=== PATIENT | female | born 1970 | race Caucasian/White ===

== ENCOUNTER 2022-08-03 14:15 | Outpatient (CLI) | payer BC, SELFPAY | END 2022-08-03 14:16 | disposition home or self-care (01) | LOC: NFLDREF 14:15 | PROVIDERS: PCP Internal Medicine; Visit Provider Internal Medicine | DX: E66.9 Obesity, unspecified (principal); E03.9 Hypothyroidism, unspecified; E10.9 Type 1 diabetes mellitus without complications | CPT/HCPCS: 84443 ==

== ENCOUNTER 2022-08-14 08:02 | Outpatient (CLI) | payer BC, SELFPAY ==
--- NOTE | 2022-08-14 08:15 | CRLHL7_ITS ---
For Patients: As a result of the Century Cures Act, medical imaging exams and procedure reports are released immediately into your electronic medical record. You may view this report before your referring provider. If you have questions, please contact your health care provider. INDICATION: Thickened endometrium COMPARISON: 04/04/2018 TECHNIQUE: 2D lorenzo scale and color Doppler images were acquired of the pelvis using a transabdominal approach. Unable to perform transvaginal imaging. FINDINGS: The uterus measures 8.3 x 3.5 x 5.0 cm. No uterine fibroid. Mild heterogeneity of the uterine echotexture. The right ovary is absent. The left ovary is not visualized. No pelvic free fluid. The endometrium is somewhat indistinct and measures 1 cm in thickness. No endometrial fluid. Previously, the endometrium measured 8 millimeters. IMPRESSION: Mildly heterogeneous and somewhat indistinct endometrium measuring 1 cm. No endometrial fluid or uterine fibroid. Dictated by Sincere Hopkins MD @ 08/14/2022 8:45:48 AM (Electronically Signed)
== END 2022-08-14 08:03 | disposition home or self-care (01) ==
PROVIDERS: PCP Internal Medicine; Visit Provider Internal Medicine
DX: R93.89 Abnormal findings on diagnostic imaging of other specified body structures (principal)
CPT/HCPCS: 76830; 76856

== ENCOUNTER 2023-03-23 06:47 | Day surgery (SDC) | payer BC, SELFPAY ==
[2023-03-23 06:59] VITALS: BMI 36.1
[2023-03-23 07:31] VITALS: BP 131/91; PULSE 84; RESP 16; TEMP 36.1; O2SAT 97
[2023-03-23] MEDS: SODIUM CHLORIDE 0.9 % (FLUSH) 10 ML SYRINGE IVF (07:40)
[2023-03-23] MEDS: LACTATED RINGERS 1000 ML 1,000 ML 100 ML IV (07:40)
--- NOTE | 2023-03-23 09:57 | PM.PROC ---
Procedure Note Time Seen by Provider: 09:58 Date Seen: 03/23/23 Date of procedure: 03/23/23 Will [facility] bill your pro fee for this procedure?: Yes Procedure: Preoperative diagnosis: [age] year-old nulligravid woman with postmenopausal bleeding and thickened endometrium, 8 mm, on ultrasound Postoperative diagnosis: Same Procedure: 1. Pap with HPV Co -testing collected. 2. Hysteroscopy, Dilation and Curettage with ultrasound guidance using the Truclear incisor. Anesthesia: Conscious sedation, paracervical block. Surgeon: Alma Garcia MD Powder Room Attendant: None triage technician: Amy Arriaga Estimated blood loss: 5 mL Specimen: Endometrial curettings to pathology. Findings: Exam under anesthesia: very stenotic vaginal canal consistent with nulliparous state and menopausal. Uterus: anteverted position, less than Ten week sized, mobile, with no masses or nodularity palpable. Uterus sounded to 9 cm. No adnexal masses or nodularity palpable. On hysteroscopy: There were at least 3 polypoid masses within the endometrium otherwise the endometrial canal appeared normal after dilation and curettage. Procedure: Shavonne Lezama was taken to the operating operating room more conscious sedation was found to be adequate. The patient was placed on in the dorsal lithotomy position and an exam under anesthesia was performed with findings stated above. A Pap smear was collected. A Shara speculum was used. She was then prepped and draped in a normal sterile manner. A Hines catheter was placed and the bladder was backfilled with 250 mL of saline. The Hines catheter was then clamped to maintain fluid within the bladder. A bivalve speculum was placed in the vagina. The cervix appears nulliparous. Otherwise no abnormalities. The paracervical block was placed using 0.5% Marcaine, 5 mL was injected at the 4 and 8 o'clock positions on the cervix. The posterior lip of the cervix was grasped with a single-toothed tenaculum. The cervix dilated to Hegar 6. The uterus sounded to 9 cm. The Truclear hysteroscope was advanced into the uterus. A diagnostic hysteroscopy was performed with normal saline as the insufflation medium. Findings are stated above. The Truclear incisor was then advanced through the camera. The curettage was performed with the incisor over an approximately 3 minutes. The incisor was then removed. The endometrial cavity appeared normal. Saline deficit at the end of the procedure 315 mL. Total saline used 1110 mL. Silver nitrate was used for hemostasis on the cervix. The hysteroscope, single-toothed tenaculum and speculum were removed from the vaginal canal. The patient tolerated the procedure well. Sponge, lap and instrument counts were correct x2 at the end of the procedure. The patient was taken to the recovery area in stable condition. Anesthesia: MAC and local Estimated blood loss (mL): 5 IV fluids (mL): 900 Urine output (mL): 50 Pathology: specimen obtained, sent to pathology Condition: stable Disposition: same day
[2023-03-23 10:04] VITALS: BP 105/50; PULSE 68; RESP 16; TEMP 36.2; O2SAT 97
--- NOTE | 2023-03-23 10:06 | W.PM.H&PU ---
History & Physical Update History & Physical Update H&P Reviewed and patient assessed: No changes noted
--- NOTE | 2023-03-23 10:10 | W.ANESCHARGE ---
Anesthesia Charges Start Date/Time Anesthesia Start Date: 03/23/23 Anesthesia Start Time: 09:15 Stop Date/Time Anesthesia Stop Date: 03/23/23 Anesthesia Stop Time: 10:04
[2023-03-23 10:15] VITALS: BP 115/69; PULSE 54; RESP 16; O2SAT 95
[2023-03-23] MEDS: ONDANSETRON 2 MG/ML inj 4 MG IVP (10:15)
[2023-03-23 10:30] VITALS: BP 122/78; PULSE 51; RESP 16; O2SAT 95
[2023-03-23 10:45] VITALS: BP 107/80; PULSE 52; RESP 16; O2SAT 98
[2023-03-23 11:00] VITALS: BP 110/70; PULSE 51; RESP 16; O2SAT 99
--- NOTE | 2023-03-23 11:25 | W.ANESCHARGE ---
Anesthesia Charges Start Date/Time Anesthesia Start Date: 03/23/23 Anesthesia Start Time: 09:15 Stop Date/Time Anesthesia Stop Date: 03/23/23 Anesthesia Stop Time: 10:04
--- NOTE | 2023-03-24 07:32 | SUR.OPER ---
sent for PAP and HPV to lab 03/23/2023
== END 2023-03-23 11:15 | disposition home or self-care (01) ==
PROVIDERS: PCP Internal Medicine; Visit Provider Obstetrics & Gynecology
PROC: 0UDB8ZZ Extraction of Endometrium, Via Natural or Artificial Opening Endoscopic (ICD-10-PCS; CPT 58558; principal; 2023-03-23 08:00)
DX: N95.0 Postmenopausal bleeding (principal); R93.89 Abnormal findings on diagnostic imaging of other specified body structures; N84.0 Polyp of corpus uteri
CPT/HCPCS: 58558; 00952; 76856; 76857; 76998; 82962; 88305; J1100; J1885; J2250; J2405; J2704; J3010; J7120

== ENCOUNTER 2024-03-02 08:24 | Outpatient (CLI) | payer BC, SELFPAY ==
--- OUTSIDE RECORDS SUMMARY | 2024-03-03 09:33 | XMS_ITS | Clinical Summary ---
Author Organization [facility] Address [address] [place] [address] Care Team Providers Care Bi Report Developer Name Role Phone Elsewhere, Pcp Primary Care Provider Unavailabl e Source Comments Patient records contain information from all sites at [facility]. For routine questions regarding patient records, call [phone] during business hours, M-F 8:00 AM - 5:00 PM Central Time. Record requests for emergency care only can be directed to [phone] at any time.[facility] Allergies No known active allergies Medications Medication Sig Dispensed Refills Start Date End Date Status levothyroxine (SYNTHROID, LEVOTHROID) 50 mcg tablet Take 1-2 tablets by mouth daily. 2 TABS EVERY OTHER DAY 1 TAB IN BETWEEN 09/25/2015 Active cholecalciferol, vitamin D3, 25 mcg (1,000 Unit) tablet Take 1,000 Units by mouth 2 (two) times a day. Active insulin aspart U-100 (NovoLOG Flexpen U-100 Insulin) 100 unit/mL (3 mL) injection Inject 0-15 Units under the skin 3 (three) times a day with meals. 1 unit of insulin per 16 grams carbohydrate with meals. 42 mL 3 10/07/2021 Active Additional Information Patient taking differently:0-15 Units subcutaneousAs needed, In case of pump malfunction. 1 unit of insulin per 16 grams carbohydrate with meals., Informant: Self, Reported on 01/26/2023 blood-glucose meter,continuous misc Use to monitor blood glucose 1 each 10/07/2021 Active fluocinonide (LIDEX) 0.05 % ointment Apply 1 application. topically 2 (two) times a day as needed for irritation. To affected area. Not currently using 10/09/2021 Active blood sugar diagnostic strips 6 test daily. 600 test 3 03/24/2022 03/08/2024 Active glucagon (Baqsimi) 3 mg/actuation spray,non-aerosol Administer 1 each into nostril(s) as directed. To treat severe low blood sugar reaction. 1 each 04/29/2022 Active insulin syringe-needle U-100 (BD Insulin Syringe Ultra-Fine) 0.5 mL 31 gauge x 5/16 syringe 4 each (4 Injection total) daily. 360 each 3 04/21/2023 04/20/2024 Active blood-glucose sensor (Dexcom G6 Sensor) deviceIndications: Diabetes Mellitus Type 1 (HCC) Inject 1 each under the skin daily. Change the sensor every 10 days. 90 each 3 05/05/2023 05/04/2024 Active Dexcom G6 Transmitter deviceIndications: Diabetes Mellitus Type 1 (HCC) Inject 1 Device under the skin daily. 1 each 1 05/05/2023 Active insulin aspart U-100 (NovoLOG U-100 Insulin aspart) 100 unit/mL injection Inject 80 Units under the skin daily. The patient is using up to 80 units via her insulin pump. 80 mL 3 05/05/2023 05/04/2024 Active lancets 4 each daily. 360 each 3 05/05/2023 05/04/2024 Active Stelara 90 mg/mL injectionIndicatio ns:Crohn's Disease (HCC) Inject 1 mL (90 mg total) under the skin every 8 (eight) weeks. 1 mL 3 12/28/2023 Active blood-glucose sensor (Dexcom G7 Sensor) device 1 each every 10 (ten) days. 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 [facility] Discharge Disposition: Home or Self Care 02/28/2024 1:00 PM CDT Comprehensive Visit Division of Nephrology and Hypertension in [place], [place] [address] [place] [phone] Sade Bush M.D., Ph.D. Chronic Kidney Disease (CKD), Stage 3a Glomerular Filtration Rate (GFR) 45 To 59 (HCC) (Primary Dx); Diabetes Mellitus Type 1 (HCC); [facility] 02/18/2024 3:02 PM CDT - 02/18/2024 11:59 PM CDT Hospital Encounter Department of Radiology, [place], [place] [address] [place] [phone] Eun Delarosa APRN, C.N.P. Diabetes Mellitus Type 1 (HCC) Discharge Disposition: Home or Self Care 02/18/2024 1:25 PM CDT - 02/18/2024 3:01 PM CDT Hospital Encounter Department of Laboratory Medicine and Pathology, [facility] in [place], [place] [address] [place] [phone] Eun Delarosa APRN, C.N.P. Diabetes Mellitus Type 1 (HCC) Discharge Disposition: Home or Self Care 02/18/2024 1:25 PM CDT - 02/18/2024 3:01 PM CDT Hospital Encounter Department of Laboratory Medicine and Pathology, [facility] in [place], [place] [address] [place] [address] Eun Delarosa APRN, C.N.P. Diabetes Mellitus Type 1 (HCC) Discharge Disposition: Home or Self Care 02/17/2024 11:00 AM CDT Office Visit Division of Endocrinology in [place], [place] [address] [place] [phone] Eun Delarosa APRN, C.N.P. Diabetes Mellitus Type 1 (HCC) 02/17/2024 7:23 AM CDT - 02/17/2024 11:59 PM CDT Hospital Encounter Department of Laboratory Medicine and Pathology, [facility] in [place], [place] [address] [place] [phone] Eun Delarosa APRN C.N.P. Diabetes Mellitus Type 1 (HCC) Discharge Disposition: Home or Self Care 02/17/2024 7:23 AM CDT - 02/17/2024 11:59 PM CDT Hospital Encounter Department of Laboratory Medicine and Pathology, [facility] in [place], [place] [address] [place] [phone] Eun Delarosa APRN, C.N.P. Diabetes Mellitus Type 1 (HCC) Discharge Disposition: Home or Self Care 02/17/2024 Orders Only Division of Endocrinology in [place], [place] [address] [place] [phone] Eun Delarosa APRN, C.N.P. Diabetes Mellitus Type 1 (HCC) (Primary Dx) 02/16/2024 3:15 PM CDT Clinical Communication Virtual Review in [address] [phone] Pre-visit Intake 01/20/2024 11:00 AM CDT Office Visit Department of Dermatology in [place], [place] [address] [place] [phone] Ambar Shafer APRN, C.N.P., M.S.N. Wart Plantar (Primary Dx) Discharge Disposition: Home or Self Care 01/19/2024 10:30 AM CDT Clinical Communication Virtual Review in [place], [place] [address] [place] [address] Pre-visit Intake 12/28/2023 Refill Division of Gastroenterology in [place], [place] [address] [place] [phone] Dane Tanner M.D. Med Refill 12/16/2023 2:00 PM CDT Office Visit Department of Orthopedic Surgery in [place], [place] [address] [place] [phone] Shahana Verde D.P.M. Warting Plantar (Primary Dx); Pain Foot Right; Diabetes Mellitus Type 1 (HCC) from Last 3 Months Immunizations Name Administration Dates Next Due HepB Adult 04/27/2019,12/01/2016,08/24/2016 Influenza, Injectable, Quadrivalent 03/02/2019 Influenza, Unspecified 02/13/2020 MMR 12/01/2016,09/22/2016 PPSV23 05/13/2020 Tdap 07/11/2014 influenza vaccine quad (FLUZ ONE/FLUARIX) (6 months and older)(PF) 03/07/2021 Family History Medical History Relation Name Comments Coronary artery disease Father Chris Brush quad bypass May 2017 Hyperlipidemia Father Chris Brush Hypertension Father Chris Brush Dementia Maternal Grandmother Kamryn Lai Hypertension Maternal Grandmother Kamryn Lai Migraines Maternal Grandmother Kamryn Lai Obesity Maternal Grandmother Kamryn Lai Hyperlipidemia Mother Alanna Brush Only postmeno pausal Migraines Mother Alanna Brush Coronary artery disease Paternal Grandfather Isaac oden Heart Attack & Bypass Relation Name Status Comments Father Chris Brush Maternal Grandmother Kamryn Lai Mother Alanna Brush Paternal Grandfather Isaac Brush Social History Tobacco Use Types Packs/Day Years Used Date Smoking Tobacco: Never Passive Smoke Exposure: Past Smokeless Tobacco: Never Tobacco Cessation:Counseling Given: Not Answered Comments:2nd hand smoke in home as child (father) Alcohol Use Standard Drinks/Week Comments No 0 (1 standard drink = 0.6 oz pur e alcohol) Humiliation, Afraid, Rape, and Kick questionnair e Answer Date Recorded Within the last year, have y ou been afraid of your partner or ex-partner? No 04/27/2022 Within the last year, have y ou been humiliated or emotionally abused in other ways by your partner or ex-partner? No Within the last year, have y ou been kicked, hit, slapped, or otherwise physically hurt by your partner or ex-partner? No 04/27/2022 Within the last year, have y ou been raped or forced to have any kind of sexual activity by your partner or ex-partner? No 04/27/2022 Social Connection and Isolation Panel [NHANES] A nswer Date Recorded In a typical week, how many times do you talk on the phone with family, friends, or neighbors? Once a week 04/27/2022 How often do you get together with friends or re latives? Once a week 04/27/2022 How often do you attend denominational or rastafarian serv ices? Never 04/27/2022 Do you belong to any clubs o r organizations such as denominational groups, unions, fraternal or athletic groups, or school groups? No 04/27/2022 How often do you attend meet ings of the clubs or organizations you belong to? Never 04/27/2022 Are you , , di vorced, , never , or living with a partner? 04/27/2022 AUDIT-C Answer Date Recorded Q1: How often do you have a drink containing alc ohol? Monthly or less 04/27/2022 Q2: How many drinks containi ng alcohol do you have on a typical day when you are drinking? 1 or 2 04/27/2022 Q3: How often do you have si x or more drinks on one occasion? Never 04/27/2022 Overall Financial Resource Strain (CARDIA) Answe r Date Recorded How hard is it for you to pa y for the very basics like food, housing, medical care, and heating? Not hard at all 04/29/2023 [facility] [place] [facility] - Occupational Stress Questionnaire Answer Date Recorded Do you feel stress - tense, restless, nervous, or anxious, or unable to sleep at night because your mind is troubled all the time - these days? To some extent 04/27/2022 Exercise Vital Sign Answer Date Recorde d On average, how many days pe r week do you engage in moderate to strenuous exercise (like a brisk walk)? 3 days 04/29/2023 On average, how many minutes do you engage in exercise at this level? 30 min 04/29/2023 Hunger Vital Sign Answer Date Recorded Within the past 12 months, y ou worried that your food would run out before you got the money to buy more. Never true 04/29/20 23 Within the past 12 months, t he food you bought just didn't last and you didn't have money to get more. Never true 04/29/2023 PRAPARE - Transportation Answer Date Re corded In the past 12 months, has l ack of transportation kept you from medical appointments or from getting medications? No 11/2022 In the past 12 months, has l ack of transportation kept you from meetings, work, or from getting things needed for daily living? No 04/29/2023 Nutrition Answer Date Recorded On average, how many serving s of fruits and vegetables do you eat per day (serving size is equal to 1 cup or approximately the size of a tennis ball)? 3-5 04/29/2023 Dental Answer Date Recorded Dental: Regular Dentist Yes 10/07/19 Employment Answer Date Recorded Employment status Employed and actively working without restrictions 04/29/2023 Housing Stability Answer Date Recorded What is your living situation today? I have a [facility] place to live 04/29/2023 Education Answer Date Recorded What is the highest level of school you have completed or the highest degree you have received? Bachelor's degree (e.g., BA, AB, BS) 09/17/2020 Sex and Gender Information Value Date Recorded Sex Assigned at Female 12/27/2017 6:39 PM CDT Gender Identity Female 12/27/2017 6:39 PM CDT Sexual Orientation Straight 12/27/2017 6: 39 PM CDT Last Filed Vital Signs Vital Sign Reading Time Taken Comments Blood Pressure 116/76 02/28/2024 1:49 PM CDT Pulse 78 02/28/2024 1:49 PM CDT Temperature 36.3 ??C (97.3 ??F) 02/28/2024 12:59 PM C DT Respiratory Rate 17 04/30/2022 10:02 AM [employer] Oxygen Saturation 98% 04/30/2022 10:03 AM [employer] Inhaled Oxygen Concentration - - Weight 109 kg (240 lb 8.4 oz) 02/28/2024 12:59 P M CDT Height 166 cm (5' 5.35) 02/17/2024 10:02 AM CDT Body Mass Index 39.59 02/17/2024 10:02 AM CDT Plan of Treatment Upcoming Encounters Date Type Department Care Team (Latest Contact Info) Description 03/13/2024 1:00 PM CDT Comprehensive Visit Department of Urology in [place], [place] [address] [place] [phone] Anderson Parra M.D. [address] [place] [phone] 03/27/2024 9:00 AM [employer] Clinical Support Department of Nutrition and Diabetes Education in [place], [place] [address] [place] [phone] Eun Delarosa APRN, C.N.P. [address] [place] [phone] Sherly Echeverria R.N., [facility] [address] [place] [phone] 04/18/2024 2:40 PM [employer] Office Visit Department of Dermatology in [address] [phone] Maria Eugenia Colunga APRN C.N.P., M.S.N. [address] [place] [phone] 05/08/2024 10:30 AM [employer] Clinical Communication Virtual Review in [place], [place] [address] [place] [phone] 05/11/2024 9:00 AM [employer] Appointment Department of Laboratory Medicine and Pathology, [facility], in [address] [phone] Alice Hill P.A.-C., M.S. 05/11/2024 1:00 PM [employer] Office Visit Division of Gastroenterology in [address] [phone] Sherly Loza APRN, C.N.P., M.S.N. [address] [place] [phone] 05/11/2024 3:00 PM [employer] Comprehensive Visit Department of Dermatology in [address] [phone] Alice Hill P.A.-C., M.S. Health Maintenance Due Date Last Done Comments CT Colonography 1968 Cologuard 1968 Colonoscopy 1968 Colorectal Cancer Surveillance 1968 Diabetic Office Visit with Foot Exam 1968 Dilated Eye Exam 1968 HIV Screening 1968 Hepatitis C Screening 1968 Mammogram 1968 Cervical Cancer Screening 06/24/20182015 (Performed elsewhere), 05/24/2011 (Performed elsewhere), 06/04/2009 (Performed elsewhere) Pneumococcal vaccine (0-64 years) (3 of 3 - PCV) 06/10/2022 06/10/2021, 05/13/2020 Depression Screening (Annual PHQ-2) 05/24/2023 COVID-19 Vaccine ( season) 2024 02/25/2023, 03/05/2022, 12/16/2021, Additional history exists Influenza Vaccine (#1) 2024 , 03/05/2022, 03/07/2021, Additional history exists DTaP,Tdap,and Td Vaccines (2 - Td or Tdap) 07/11/2024 07/11/2014 Hemoglobin A1C 08/17/2024 02/18/2024, 06/0 10/2023, 06/02/2023, Additional history exists Lipid (Cholesterol) Screening 10/27/2024 10/28/2023, 08/19/2022, 04/29/2022, Additional history exists Thyroid Stimulating Hormone (TSH) test for thyroid function 02/16/2025 02/17/2024, 10/28/2022, 10/06/2021, Additional history exists Urine Albumin 02/16/2025 02/17/2024, 060 11/2022, 04/29/2022, Additional history exists Creatinine Level (Kidney Function Test) 02/17/2025 02/18/2024, 02/17/2024, 05/10/2023, Additional history exists Office Visit for Blood Pressure Check / Re-check 02/27/2025 02/28/2024 Hepatitis B Vaccines Completed 06/30/2022, 06/30/2022, 01/16/2022, Additional history exists Zoster Vaccines Completed 06/30/2022, 01/16/2022 HPV Vaccines Aged Out No longer eligi ble based on patient's age to complete this topic Procedures Procedure Name Priority Date/Time Associated Diagnosis Comments CT ABDOMEN PELVIS WITHOUT IV CONTRAST RAD - Routine (most inpatients and all outpatients) 03/01/2024 12:31 PM CDT [facility] US KIDNEYS BILATERAL WITH BLADDER RAD - Routine (most inpatients and all outpatients) 02/18/2024 3:41 PM CDT Diabetes Mellitus Type 1 (HCC) DIPSTICK, U Routine 02/18/2024 1:58 PM CDT PH, U Routine 02/18/2024 1:58 PM CDT OSMOLALITY, U Routine 02/18/2024 1:58 PM CDT MICROSCOPIC AUTOMATED Routine 02/18/2024 1:58 PM CDT URINALYSIS WITH MICROSCOPIC Routine 02/18/2024 1:58 PM CDT Diabetes Mellitus Type 1 (HCC) HEMOGLOBIN A1C, B Routine 02/18/2024 1:5 2 PM CDT Diabetes Mellitus Type 1 (HCC) CBC WITH DIFFERENTIAL, B Routine 02/18/2024 1:52 PM CDT Diabetes Mellitus Type 1 (HCC) RENAL FUNCTION PANEL, S Routine 02/18/2024 1:52 PM CDT Diabetes Mellitus Type 1 (HCC) ALBUMIN, RANDOM, U Routine 02/17/2024 7: 38 AM CDT Diabetes Mellitus Type 1 (HCC) CREATININE WITH EGFR, S/P Routine 02/17/2024 7:33 AM CDT Diabetes Mellitus Type 1 (HCC) THYROID-STIMULATIN G HORMONE-SENSITIVE (S-TSH) Routine 02/17/2024 7:33 AM CDT Diabetes Mellitus Type 1 (HCC) LIPID PANEL, S Routine 10/28/2023 9:15 AM CDT Diabetes Mellitus Type 1 (HCC) from Last 3 Months or Most Recently Relevant to Health Maintenance Results * CT Abdomen Pelvis without IV Contrast (03/01/2024 12:31 PM CDT) Anatomical Region Laterality Modality Abdomen, Pelvis, Abdominal R ST LOS, Abdominal ARZ LOS, Abdominal FLA LOS N/A Computed Tomograp hy, Computed Tomography Impressions 03/01/2024 7:03 PM CDT 1. ??Stable mild left renal pelvocaliectasis. Abrupt caliber change at the left ureteropelvic junction to normal caliber left ureter, which may be related to stricture. 2. ??Stable 1.0 cm nonobstructing stone in the lower pole left kidney. Narrative 03/01/2024 7:03 PM CDT EXAM: ??CT ABDOMEN PELVIS WITHOUT IV CONTRAST. COMPARISON: ??CT from May 10, 2023 and from April 29, 2022. FINDINGS: ??Stable 1.0 cm non-obstructing calyceal stone in the lower left kidney. No other urinary calculi identified. Stable mild left hydronephrosis with abrupt caliber change at the ureteropelvic junction. Normal caliber left ureter. The right renal collecting system and ureter are not dilated. Stable junctional defects in the upper kidneys, likely developmental. Tiny hiatal hernia. Focal hepatic steatosis in the anterior left hepatic lobe adjacent to the falciform ligament. Cholelithiasis. The spleen and adrenal glands are unremarkable. Mild atrophy of the pancreas. Status post proctocolectomy and ileal pouch anal anastomosis. Small mildly reactive lymph nodes along the pouch mesentery. Similar subchondral sclerosis of both femoral heads without associated disruption of the femoral head articular surface. Mild bibasilar atelectasis. Procedure Note Alvino Randle M.D., Ph.D. - 03/01/2024 EXAM: CT ABDOMEN PELVIS WITHOUT IV CONTRAST. COMPARISON: CT from May 10, 2023 and from April 29, 2022. FINDINGS: Stable 1.0 cm non-obstructing calyceal stone in the lower leftkidney. No other urinary calculi identified. Stable mild lefthydronephrosis with abrupt caliber change at the ureteropelvic junction.Normal caliber left ureter. The right renal collecting system and ureter are not dilated. Stable junctional defects inthe upper kidneys, likely developmental. Tiny hiatal hernia. Focal hepatic steatosis in the anterior left hepaticlobe adjacent to the falciform ligament. Cholelithiasis. The spleen andadrenal glands are unremarkable. Mild atrophy of the pancreas. Status post proctocolectomy and ileal pouch anal anastomosis. Small mildlyreactive lymph nodes along the pouch mesentery. Similar subchondralsclerosis of both femoral heads without associated disruption of thefemoral head articular surface. Mild bibasilar atelectasis. IMPRESSION: 1. Stable mild left renal pelvocaliectasis. Abrupt caliber change at theleft ureteropelvic junction to normal caliber left ureter, which may berelated to stricture. 2. Stable 1.0 cm nonobstructing stone in the lower pole left kidney. Sade Eckert M.D., Ph.D. IMG CT PROCEDURES * US Kidneys Bilateral with Bladder (02/18/2024 3:41 PM CDT) Anatomical Region Laterality Modality Abdomen, Renal, Ultrasound R ST LOS, Ultrasound ARZ LOS, Ultrasound FLA LOS Bilateral Ultrasound Impressions 02/18/2024 4:47 PM CDT 1. ??Mild left hydronephrosis, similar to the CT on 05/10/2023. No right hydronephrosis. 2. ??1.2 cm nonobstructing renal stone in the lower pole of the left kidney, unchanged. Narrative 02/18/2024 4:47 PM CDT EXAM: US KIDNEYS BILATERAL WITH BLADDER COMPARISON: CT abdomen pelvis 05/10/2023 FINDINGS: Right kidney: 10.0 cm. Cortical thickness: Normal. Parenchymal echogenicity: Normal. Collecting system: No hydronephrosis. Masses: None detected. Left kidney: 11.8 cm. Cortical thickness: Mild thinning Parenchymal echogenicity: Normal. Collecting system: Mild hydronephrosis, no change post void. 1.2 cm nonobstructing renal stone in the lower pole of the left kidney. Masses: None detected. Bladder: Moderately distended. Procedure Note Sincere Lombardo M.B., Ch.B. - 02/18/2024 EXAM: US KIDNEYS BILATERAL WITH BLADDER COMPARISON: CT abdomen pelvis 05/10/2023 FINDINGS: Right kidney: 10.0 cm. Cortical thickness: Normal. Parenchymal echogenicity: Normal. Collecting system: No hydronephrosis. Masses: None detected. Left kidney: 11.8 cm. Cortical thickness: Mild thinning Parenchymal echogenicity: Normal. Collecting system: Mild hydronephrosis, no change post void. 1.2 cmnonobstructing renal stone in the lower pole of the left kidney. Masses: None detected. Bladder: Moderately distended. IMPRESSION: 1. Mild left hydronephrosis, similar to the CT on 05/10/2023. No righthydronephrosis. 2. 1.2 cm nonobstructing renal stone in the lower pole of the leftkidney, unchanged. Eun Delarosa APRN, C.N.P. IMG US OR OCEDURES * Dipstick, Urine (02/18/2024 1:58 PM CDT) Hemoglobin, QL, U Negative Negative 02/18/2024 2:46 PM CDT DTL Leukocyte Esterase, U Negative Negative 02/18/2024 2:46 PM CDT DTL Nitrite, U Negative Negative 02/18/2024 2:46 PM CDT DTL Ketone, U Negative Negative mg/dL 02/18/2024 2:46 PM CDT DTL Glucose, U Negative Negative mg/dL 02/18/2024 2:46 PM CDT DTL Urine 02/18/2024 1:58 PM CDT 02/18/2024 2:15 PM CDT Eun Delarosa APRN, C.N.P. LAB URINE ORDERABLES [facility] [address] [place] [address], [facility] [address] [place] [address] * Microscopic Automated (02/18/2024 1:58 PM CDT) Microscopy Normal 02/18/2024 2:46 PM CDT DTL RBC None Seen <3 /hpf 02/18/2024 2:46 PM CDT DTL WBC None Seen /hpf 02/18/2024 2:46 PM CDT DTL Comment: ----REFERENCE VALUE---- <4 ??(Males) <11 (Females) Squamous Epithelial Cells, U 1-3 /hpf 02/18/2024 2:46 PM CDT DTL Urine 02/18/2024 1:58 PM CDT 02/18/2024 2:15 PM CDT Eun Delarosa APRN C.N.P. LAB URINE ORDERABLES Performing Organization Address City/[facility]/ZIP Co de Phone Number [facility] [address] [place] [address], [facility] [address] [place] [address] * pH, Urine (02/18/2024 1:58 PM CDT) pH, U 6.2 4.5 - 8.0 02/18/2024 3:5 5 PM CDT DTL Urine 02/18/2024 1:58 PM CDT 02/18/2024 2:15 PM CDT Eun Delarosa APRN C.N.P. LAB URINE ORDERABLES [facility] [address] [place] [address], [facility] [address] [place] [address] * Osmolality, Urine (02/18/2024 1:58 PM CDT) Osmolality, U 223 150 - 1150 mOsm/kg 02/18/2024 3:55 PM CDT DTL Urine 02/18/2024 1:58 PM CDT 02/18/2024 2:15 PM CDT Alex Kiran APRN.N.P. LAB URINE ORDERABLES [facility] [address] [place] [address], [facility] [address] [place] [address] * Urinalysis, with Microscopic: Urine, Midstream (02/18/2024 1:58 PM CDT) Source Urine, Urine, Midstream 02/18/2024 2:15 PM CDT DTL Color, U Yellow 02/18/2024 2:15 PM CDT DTL Clarity, U Clear 02/18/2024 2:15 PM CDT DTL Protein, U 4 <26 mg/dL 02/18/2024 3:07 PM CDT DTL Protein/Osmol ality 0.18 <0.42 ratio 02/18/2024 3:55 PM CDT DTL Predicted 24 HR Protein, U 141 <229 mg/24 h 02/18/2024 3:55 PM CDT DTL Predicted Range 35-569 mg/24 h 02/18/2024 3:55 PM CDT DTL Urine (Urine, Midstream) 02/18/2024 1:58 PM CDT 02/18/2024 2:15 PM CDT Eun Delarosa APRN C.N.P. LAB URINE ORDERABLES [facility] [address] [place] [address], [place] [facility] [address] [place] [address] * (ABNORMAL) Renal Function Panel (02/18/2024 1:52 PM CDT) Potassium, S 4.3 3.6 - 5.2 mmol/L 02/18/2024 2:47 PM CDT DTL Sodium, S 139 135 - 145 mmol/L 02/18/2024 2:47 PM CDT DTL Chloride, S 101 98 - 107 mmol/L 02/18/2024 2:47 PM CDT DTL Bicarbonate, S 28 22 - 29 mmol/L 02/18/2024 2:47 PM CDT DTL Anion Gap 10 7 - 15 02/18/2024 2:47 PM CDT DTL BUN (Blood Urea Nitrogen), S 17 6 - 21 mg/dL 02/18/2024 2:47 PM CDT DTL Creatinine 1.20(H) 0.59 - 1.04 mg/dL 02/18/2024 2:47 PM CDT DTL Estimated GFR (eGFR) 53(L) >=60 mL/min/BSA 02/18/2024 2:47 PM CDT DTL Comment: Estimated GFR calculated using the 2020 CKD_EPI creatinine equation. Calcium, Total, S 9.2 8.6 - 10.0 mg/dL 02/18/2024 2:47 PM CDT DTL Glucose, S 219(H) 70 - 140 mg/dL 02/18/2024 2:47 PM CDT DTL Albumin, S 4.0 3.5 - 5.0 g/dL 02/18/2024 2:47 PM CDT DTL Phosphorus (Inorganic), S 3.2 2.5 - 4.5 mg/dL 02/18/2024 2:47 PM CDT DTL Blood (Blood, Venous) 02/18/2024 1:52 PM CDT 02/18/2024 2:27 PM CDT Eun Delarosa APRN C.N.P. LAB BLOOD ADD-ON [facility] [address] [place] [address], [facility] DTL [facility] [address] [place] [address] * CBC with Differential, Blood (02/18/2024 1:52 PM CDT) Hemoglobin 13.2 11.6 - 15.0 g/dL 02/18/2024 2:35 PM CDT DTL Hematocrit 41.4 35.5 - 44.9 % 02/18/2024 2:35 PM CDT DTL Erythrocytes 5.08 3.92 - 5.13 x10(12)/L 02/18/2024 2:35 PM CDT DTL MCV 81.5 78.2 - 97.9 fL 02/18/2024 2:35 PM CDT DTL RBC Distrib Width 15.9 12.2 - 16.1 % 02/18/2024 2:35 PM CDT DTL Platelet Count 185 157 - 371 x10(9)/L 02/18/2024 2:35 PM CDT DTL Leukocytes 6.1 3.4 - 9.6 x10(9)/L 02/18/2024 2:35 PM CDT DTL Neutrophils 3.91 1.56 - 6.45 x10(9)/L 02/18/2024 2:35 PM CDT DHPM Lymphocytes 1.45 0.95 - 3.07 x10(9)/L 02/18/2024 2:35 PM CDT DTL Monocytes 0.49 0.26 - 0.81 x10(9)/L 02/18/2024 2:35 PM CDT DTL Eosinophils 0.23 0.03 - 0.48 x10(9)/L 02/18/2024 2:35 PM CDT DTL Basophils 0.05 0.01 - 0.08 x10(9)/L 02/18/2024 2:35 PM CDT DTL Blood (Blood, Venous) 02/18/2024 1:52 PM CDT 02/18/2024 2:22 PM CDT Eun Delarosa APRN C.N.P. LAB BLOOD ADD-ON [facility] [address] [place] [address], [facility] DTL [facility] [address] [place] [address] [facility] 200 [place] [address] * (ABNORMAL) Hemoglobin A1c (02/18/2024 1:52 PM CDT) Hemoglobin A1c, B 7.6(H) 4.0 - 5.6 % 02/18/2024 4:42 PM CDT DTL Comment: Hemoglobin A1c values greater than or equal to 6.5 percent are diagnostic for diabetes mellitus. ??Diagnosis should be confirmed by repeat testing. ??In diabetic patients, HbA1c goals should be discussed with healthcare provider. Blood (Blood, Venous) 02/18/2024 1:52 PM CDT 02/18/2024 2:22 PM CDT Aurelio Kiran APRNNBk LAB BLOOD ADD-ON [facility] 200 [place], [place] [address] 200 [place] [address] * Albumin, Random, Urine (02/17/2024 7:38 AM CDT) Pathologist [facility] Albumin, Random, U <5.0 mg/L 2023 10:58 AM CDT DTL Comment: ----ADDITIONAL INFORMATION---- This test has been modified from the virology teacher's instructions. Its performance characteristics were determined by [facility] in a manner consistent with CLIA requirements. This test has not been cleared or approved by the U.S. Food and Drug Administration. Creatinine 55 mg/dL 02/17/2024 11:59 AM CDT DTL Albumin/Creatinine Ratio <9 <25 mg/g 02/17/2024 11:59 AM CDT DTL Comment: This ratio may not correspond with the reference range because one or both of the values used to calculate the ratio was above or below the quantification limits. Urine (Urine, Midstream) 02/17/2024 7:38 AM CDT 02/17/2024 8:52 AM CDT Alex Kiran APRN.N.P. LAB URINE ORDERABLES Performing Organization Address City/[facility]/ZIP Co de Phone Number [facility] [address] 200 [place] [address] * (ABNORMAL) S-TSH (Thyroid-Stimulating Hormone - Sensitive) (02/17/2024 7:33 AM CDT) TSH, Sensitive 6.0(H) 0.3 - 4.2 mIU/L 02/17/2024 9:19 AM CDT DTL Blood (Blood, Venous) 02/17/2024 7:33 AM CDT 02/17/2024 8:24 AM CDT Alex Kirna APRN.N.P. LAB BLOOD ADD-ON Performing Organization Address City/[facility]/ZIP Co de Phone Number [facility] 200 [place], [place] [phone] [place] [address] [facility] 200 [place] [address] * (ABNORMAL) Creatinine with Estimated GFR (02/17/2024 7:33 AM CDT) Creatinine 1.16(H) 0.59 - 1.04 mg/dL 02/17/2024 9:19 AM CDT DTL Estimated GFR (eGFR) 56(L) >=60 mL/min/BSA 02/17/2024 9:19 AM CDT DTL Comment: Estimated GFR calculated using the 2020 CKD_EPI creatinine equation. Blood (Blood, Venous) 02/17/2024 7:33 AM CDT 02/17/2024 8:24 AM CDT Alex Kiran APRN.N.P. LAB BLOOD ADD-ON Performing Organization Address City/[facility]/ZIP Co de Phone Number [facility] [address] [place] [address] * (ABNORMAL) Lipid Panel (10/28/2023 9:15 AM CDT) Triglycerides 166(H) mg/dL 10/28/2023 10:17 AM CDT DTL Comment: ----REFERENCE VALUE---- Normal: <150 mg/dL Borderline High: 150-199 mg/dL High: 200-499 mg/dL Very High: > or =500 mg/dL Cholesterol, Total 225(H) mg/dL 2023 10:17 AM CDT DTL Comment: ----REFERENCE VALUE---- Desirable: < 200 mg/dL Borderline High: 200 - 239 mg/dL High: > or = 240 mg/dL Cholesterol, LDL, Calculated 138(H) mg/dL 10/28/2023 10:17 AM CDT DTL Comment: ----REFERENCE VALUE---- Desirable: <100 mg/dL Above Desirable: 100-129 mg/dL Borderline High: 130-159 mg/dL High: 160-189 mg/dL Very High: >=190 mg/dL ----ADDITIONAL INFORMATION---- LDL cholesterol calculated using the Barros/NIH equation. Cholesterol, HDL, S 58 >=50 mg/dL 10/28/2023 10:17 AM CDT DTL Cholesterol, Non-HDL, Calculated 167(H) mg/dL 10/28/2023 10:17 AM CDT DTL Comment: ----REFERENCE VALUE---- Desirable: <130 mg/dL Above Desirable: 130-159 mg/dL Borderline High: 160-189 mg/dL High: 190-219 mg/dL Very High: > or =220 mg/dL Fasting (8 HR or more) No 10/28/2023 9:57 AM CDT DTL Blood (Blood, Venous) 10/28/2023 9:15 AM CDT 10/28/2023 9:57 AM CDT Eun Delarosa APRN, C.N.P. LAB BLOOD ADD-ON [facility] [address] [place] [address], [place] DTL [facility] [place] [address] [place] [address] from Last 3 Months or Most Recently Relevant to Health Maintenance Care Teams Bi Report Developer Relationship Specialty Start Date End Date Elsewhere, Pcp PCP - General Family Medicine 02/11/21
--- OUTSIDE RECORDS SUMMARY | 2024-03-03 09:34 | XMS_ITS ---
Author Organization [facility] Address [address] [place] [address] Care Team Providers Care Landscape Drafter Name Role Phone Unavailable Unavailable Unavailable Surgery Details Not on file Complications Check Surgery Details section. Procedure Estimated Blood Loss Check Surgery Details section. Procedure Findings Check Surgery Details section. Procedure Specimens Taken Check Surgery Details section.
--- OUTSIDE RECORDS SUMMARY | 2024-03-03 09:34 | XMS_ITS | Encounter Summary ---
Author Organization [facility] Address [address] [place] [address] Care Team Providers Care Lapping Machine Operator Name Role Phone Elsewhere, Pcp Primary Care Provider Unavailabl e Encounter Details Date Type Department Care Team (Latest Contact Info) Description 02/17/2024 7:23 AM CDT - 02/17/2024 11:59 PM CDT Hospital Encounter Department of Laboratory Medicine and Pathology, [facility] in [place], [place] [address] [place] [phone] Eun Delarosa, DAVID, C.N.P. [address] [place] [phone] Diabetes Mellitus Type 1 (HCC) Discharge Disposition: Home or Self Care Social History Tobacco Use Types Packs/Day Years Used Date Smoking Tobacco: Never Passive Smoke Exposure: Past Smokeless Tobacco: Never Comments:2nd hand smoke in h ome as child (father) Alcohol Use Standard Drinks/Week [...] week 04/27/2022 How often do you attend latter day or presybeterian serv ices? Never 04/27/2022 Do you belong to any clubs o r organizations such as latter day groups, unions, fraternal or athletic groups, or [...] and heating? Not hard at all 04/29/2023 [facility] - Occupational Stress Questionnaire Answer Date Recorded [...] your living situation today? I have a [facility] place to live 04/29/2023 Education Answer Date Recorded What is the highest level of school you have completed or the highest degree you have received? Bachelor's degree (e.g., BA, AB, BS) 09/17/2020 Sex and Gender Information Value Date Recorded Sex Assigned at Female 12/27/2017 6:39 PM CDT Gender Identity Female 12/27/2017 6:39 PM CDT Sexual Orientation Straight 12/27/2017 6: 39 PM CDT documented as of this encounter Medications at Time of Discharge Medication Sig Dispensed Refills Start Date End Date blood sugar diagnostic strips 6 test daily. 600 test 3 03/24/2022 03/08/2024 blood-glucose meter,continuous misc Use to monitor blood glucose 1 each 10/07/2021 blood-glucose sensor (Dexcom G6 Sensor) deviceIndications:Diab etes Mellitus Type 1 (HCC) Inject 1 each under the skin daily. Change the sensor every 10 days. 90 each 3 05/05/2023 05/04/2024 blood-glucose sensor (Dexcom G7 Sensor) device 1 each every 10 (ten) days. 9 each 3 02/17/2024 02/16/2025 cholecalciferol, vitamin D3, 25 mcg (1,000 Unit) tablet Take 1,000 Units by mouth 2 (two) times a day. Dexcom G6 Transmitter deviceIndications:Diab etes Mellitus Type 1 (HCC) Inject 1 Device under the skin daily. 1 each 1 05/05/2023 fluocinonide (LIDEX) 0.05 % ointment Apply 1 application. topically 2 (two) times a day as needed for irritation. To affected area. Not currently using 10/09/2021 glucagon (Baqsimi) 3 mg/actuation spray,non-aerosol Administer 1 each into nostril(s) as directed. To treat severe low blood sugar reaction. 1 each 04/29/2022 insulin aspart U-100 (NovoLOG Flexpen U-100 Insulin) 100 unit/mL (3 mL) injection Inject 0-15 Units under the skin 3 (three) times a day with meals. 1 unit of insulin per 16 grams carbohydrate with meals. 42 mL 3 10/07/2021 insulin aspart U-100 (NovoLOG U-100 Insulin aspart) 100 unit/mL injection Inject 80 Units under the skin daily. The patient is using up to 80 units via her insulin pump. 80 mL 3 05/05/2023 05/04/2024 insulin syringe-needle U-100 (BD Insulin Syringe Ultra-Fine) 0.5 mL 31 gauge x 5/16 syringe 4 each (4 Injection total) daily. 360 each 3 04/21/2023 04/20/2024 lancets 4 each daily. 360 each 3 05/05/2023 05/04/2024 levothyroxine (SYNTHROID, LEVOTHROID) 50 mcg tablet Take 1-2 tablets by mouth daily. 2 TABS EVERY OTHER DAY 1 TAB IN BETWEEN 09/25/2015 Stelara 90 mg/mL injectionIndications:C rohn's Disease (HCC) Inject 1 mL (90 mg total) under the skin every 8 (eight) weeks. 1 mL 3 12/28/2023 documented as of this encounter Plan of Treatment Upcoming Encounters Date Type Department Care Team (Latest Contact Info) Description 03/13/2024 1:00 PM CDT Comprehensive Visit Department of Urology in [place], [place] 200 [place] [address] Anderson Parra M.D. 200 [place] [phone] 03/27/2024 9:00 AM FUNERAL ASSISTANT Clinical Support Department of Nutrition and Diabetes Education in [place], [place] [address] [place] [phone] Eun Delarosa APRN, Alex.N.P. [address] [place] [phone] Sherly Echeverria R.N., [facility] [address] [place] [phone] 04/18/2024 2:40 PM FUNERAL ASSISTANT Office Visit Department of Dermatology in [address] [phone] Maria Eugenia Colunga APRN, AurelioNYony., M.S.N. [address] [place] [phone] 05/08/2024 10:30 AM FUNERAL ASSISTANT Clinical Communication Virtual Review in [place], [place] 200 [place] [phone] 05/11/2024 9:00 AM FUNERAL ASSISTANT Appointment Department of Laboratory Medicine and Pathology, [facility], in [address] [phone] Alice Hill P.A.-C., M.S. 05/11/2024 1:00 PM FUNERAL ASSISTANT Office Visit Division of Gastroenterology in [address] [phone] Sherly Loza APRN, C.NShaqP., M.S.N. [address] [place] [phone] 05/11/2024 3:00 PM FUNERAL ASSISTANT Comprehensive Visit Department of Dermatology in [address] [phone] Alice Hill P.A.-C., M.S. documented as of this encounter Procedures Procedure Name Priority Date/Time Associated Diagnosis Comments THYROID-STIMULATING HORMONE-SENSITIVE (S-TSH) Routine 02/17/2024 7:33 AM CDT Diabetes Mellitus Type 1 (HCC) CREATININE WITH EGFR, S/P Routine 02/17/2024 7:33 AM CDT Diabetes Mellitus Type 1 (HCC) documented in this encounter Results * (ABNORMAL) Creatinine with Estimated GFR (02/17/2024 7:33 AM CDT) Creatinine 1.16(H) 0.59 - 1.04 mg/dL 02/17/2024 9:19 AM CDT DTL Estimated GFR (eGFR) 56(L) >=60 mL/min/BSA 02/17/2024 9:19 AM CDT DTL Comment: Estimated GFR calculated using the 2020 CKD_EPI creatinine equation. Blood (Blood, Venous) 02/17/2024 7:33 AM CDT 02/17/2024 8:24 AM CDT Eun Delarosa APRN C.N.P. LAB BLOOD ADD-ON [facility] 200 [place] [address], [facility] 200 [place] [address] * (ABNORMAL) S-TSH (Thyroid-Stimulating Hormone - Sensitive) (02/17/2024 7:33 AM CDT) TSH, Sensitive 6.0(H) 0.3 - 4.2 mIU/L 02/17/2024 9:19 AM CDT DTL Blood (Blood, Venous) 02/17/2024 7:33 AM CDT 02/17/2024 8:24 AM CDT Eun Delarosa APRN C.N.P. LAB BLOOD ADD-ON [facility] [address] [place] [address], [facility] DTL [facility] [address] [place] [address] documented in this encounter Visit Diagnoses Diagnosis Diabetes Mellitus Type 1 (HCC) documented in this encounter Care Teams Lapping Machine Operator Relationship Specialty Start Date End Date Elsewhere, Pcp PCP - General Family Medicine 02/11/21 documented as of this encounter
--- OUTSIDE RECORDS SUMMARY | 2024-03-03 09:34 | XMS_ITS | Encounter Summary ---
Author Organization [facility] Address [address] [place] [address] Care Team Providers Care Motor Equipment Lieutenant Name Role Phone Elsewhere, Pcp Primary Care Provider Unavailabl e Reason for Referral * MRI/CAT/PET Scan (Routine) - Closed Specialty Diagnoses / Procedures Referred By Manac t Referred To Contact Radiology Diagnoses [facility] Procedures CT Abdomen Pelvis without IV Contrast Sade Bush M.D., Ph.D. [address] [place] [phone] [facility] Referral ID Status Reason Start Date Expiration Date Visits Re quested Visits Authorized [id number] Closed 02/28/2024 02/27/2025 1 1 Reason for Visit * MRI/CAT/PET Scan (Routine) - Closed Specialty Diagnoses / Procedures Referred By Contac t Referred To Contact Radiology Diagnoses [facility] Procedures CT Abdomen Pelvis without IV Contrast Sade Bush M.D., Ph.D. [address] [place] [phone] [facility] Referral ID Status Reason Start Date Expiration Date Visits Re quested Visits Authorized [id number] Closed 02/28/2024 02/27/2025 1 1 Encounter Details Date Type Department Care Team (Latest Contact Info) Description 03/01/2024 11:32 AM CDT - 03/01/2024 11:59 PM CDT Hospital Encounter Department of Radiology, [facility], in [place], [place] 200 [place] [address] Sade Bush M.[place] [phone] [facility] Discharge Disposition: Home or Self Care Social [...] week 04/27/2022 How often do you attend baptism or anabaptism serv ices? Never 04/27/2022 Do you belong to any clubs o r organizations such as baptism groups, unions, fraternal or athletic groups, or [...] and heating? Not hard at all 04/29/2023 [facility]ational Stress Questionnaire Answer Date Recorded [...] your living situation today? I have a [facility] [place] place to live 04/29/2023 Education Answer Date [...] CDT Comprehensive Visit Department of Urology in [place], [place] [address] [place] [phone] Anderson Parra M.D. [address] [place] [phone] 03/27/2024 9:00 AM KNITTER WIRE MESH Clinical Support Department of Nutrition and Diabetes Education in [place], [place] [address] [place] [phone] Eun Delarosa APRN, C.N.P. [address] [place] [phone] Sherly cEheverria R.N., [facility] [address] [place] [phone] 04/18/2024 2:40 PM KNITTER WIRE MESH Office Visit Department of Dermatology in [place], [place] [address] [place] [phone] Maria Eugenia Colunga APRN, C.N.P., M.S.N. [address] [place] [phone] 05/08/2024 10:30 AM KNITTER WIRE MESH Clinical Communication Virtual Review in [place], [place] 200 [place] [phone] 05/11/2024 9:00 AM KNITTER WIRE MESH Appointment Department of Laboratory Medicine and Pathology, [facility], in [place], [place] [address] [place] [phone] Alice Hill P.A.-C., M.S. 05/11/2024 1:00 PM KNITTER WIRE MESH Office Visit Division of Gastroenterology in [address] [phone] Sherly Loza, DAVID, C.N.P., M.S.N. [address] [place] [phone] 05/11/2024 3:00 PM KNITTER WIRE MESH Comprehensive Visit Department of Dermatology in [address] [phone] Alice Hill P.A.-C., M.S. documented as of this encounter Procedures Procedure Name Priority Date/Time Associated Diagnosis Comments CT ABDOMEN PELVIS WITHOUT IV CONTRAST RAD - Routine (most inpatients and all outpatients) 03/01/2024 12:31 PM CDT [facility] documented in this encounter Results * CT Abdomen Pelvis without IV [...] Sade Eckert M.D., Ph.D. IMG CT PROCEDURES documented in this encounter Visit Diagnoses Diagnosis [facility] documented in this encounter Care Teams Motor Equipment Lieutenant Relationship Specialty Start Date End Date Elsewhere, Pcp PCP - General Family Medicine 02/11/21 documented as of this encounter
--- OUTSIDE RECORDS SUMMARY | 2024-03-03 09:34 | XMS_ITS | Encounter Summary ---
Author Organization [facility] Address [address] [place] [address] Care Team Providers Care Android Programmer Name Role Phone Elsewhere, Pcp Primary Care Provider Unavailabl e Encounter Details Date Type Department Care Team (Late st Contact Info) Description 02/17/2024 Orders Only Division of Endocrinology in [place], [place] [address] [place] [phone] Eun Delarosa, DAVID, C.N.P. [address] [place] [phone] Diabetes Mellitus Type 1 (HCC) (Primary Dx) Social History Tobacco Use Types Packs/Day Years [...] week 04/27/2022 How often do you attend orthodox or samaritan serv ices? Never 04/27/2022 Do you belong to any clubs o r organizations such as orthodox groups, unions, fraternal or athletic groups, or [...] and heating? Not hard at all 04/29/2023 [facility] - Occupational Stress [...] your living situation today? I have a [facility] place to live 04/29/2023 Education Answer [...] PM CDT documented as of this encounter Plan of Treatment Upcoming Encounters Date Type Department Care Team (Latest Contact Info) Description 03/13/2024 1:00 PM CDT Comprehensive Visit Department of Urology in [place], [place] 200 [place] [address] Anderson Parra M.D. 200 [place] [phone] 03/27/2024 9:00 AM MANAGER LIFE Clinical Support Department of Nutrition and Diabetes Education in [place], [place] 200 [place] [phone] Eun Delarosa, EMERGENCY CARE ATTENDANT, C.N.P. [address] [place] [phone] EcheverriaSherly arriaga R.N., [facility] [address] [place] [phone] 04/18/2024 2:40 PM MANAGER LIFE Office Visit Department of Dermatology in [place], [place] [address] [place] [phone] Maria Eugenia Colunga APRN, C.N.Adan., M.S.N. [address] [place] [phone] 05/08/2024 10:30 AM MANAGER LIFE Clinical Communication Virtual Review in [place], [place] 200 [place] [phone] 05/11/2024 9:00 AM MANAGER LIFE Appointment Department of Laboratory Medicine and Pathology, [facility] in [place], [place] [address] [place] [phone] Alice Hill P.A.-C., M.S. 05/11/2024 1:00 PM MANAGER LIFE Office Visit Division of Gastroenterology in [place], [place] [address] [place] [phone] Sherly Loza, Alex HERNANDEZ.N.P., M.S.N. [address] [place] [phone] 05/11/2024 3:00 PM MANAGER LIFE Comprehensive Visit Department of Dermatology in [place], [place] [address] [place] [phone] Alice Hill P.A.-C., M.S. documented as of this encounter Results * (ABNORMAL) Hemoglobin A1c (02/18/2024 1:52 PM CDT) [facility] Hemoglobin A1c, B 7.6(H) 4.0 - 5.6 % 02/18/2024 4:42 PM CDT DTL Comment: Hemoglobin A1c values greater than or equal to 6.5 percent are diagnostic for diabetes mellitus. ??Diagnosis should be confirmed by repeat testing. ??In diabetic patients, HbA1c goals should be discussed with healthcare provider. Blood (Blood, Venous) 02/18/2024 1:52 PM CDT 02/18/2024 2:22 PM CDT Eun Delarosa APRN, C.N.P. LAB BLOOD ADD-ON [facility] [address] [place] [address], [place] [facility] [place]note 2] [address] [place] [address] documented in this encounter Visit Diagnoses Diagnosis Diabetes Mellitus Type 1 (HCC)- Primary documented in this encounter Care Teams Android Programmer Relationship Specialty Start Date End Date Elsewhere, Pcp PCP - General Family Medicine 02/11/21 documented as of this encounter
--- OUTSIDE RECORDS SUMMARY | 2024-03-03 09:34 | XMS_ITS | Encounter Summary ---
Author Organization [facility] Address [address] [place] [address] Care Team Providers Care Tree Killer Name Role Phone Elsewhere, Pcp Primary Care Provider Unavailabl e Encounter Details Date Type Department Care Team (Latest Contact Info) Description 02/18/2024 1:25 PM CDT - 02/18/2024 3:01 PM CDT Hospital Encounter Department of Laboratory Medicine and Pathology, [facility] in [place], [place] [address] [place] [phone] Eun Delarosa, DAVID, C.N.P. [address] [place] [phone] Diabetes Mellitus Type 1 (HCC) Discharge Disposition: [...] week 04/27/2022 How often do you attend orthodoxy or church serv ices? Never 04/27/2022 Do you belong to any clubs o r organizations such as orthodoxy groups, unions, fraternal or athletic groups, or [...] and heating? Not hard at all 04/29/2023 [facility] - Occupational Stress Questionnaire Answer [...] your living situation today? I have a [facility] place to live 04/29/2023 Education Answer Date [...] CDT Comprehensive Visit Department of Urology in [place], [place] 200 [place] [phone] Anderson Parra M.D. 200 [place] [address] 03/27/2024 9:00 AM DATA CENTER ENGINEER Clinical Support Department of Nutrition and Diabetes Education in [place], [place] [address] [place] [phone] Eun Delarosa APRN, Alex.N.P. [address] [place] [phone] Sherly Echeverria R.N., [facility] [address] [place] [phone] 04/18/2024 2:40 PM DATA CENTER ENGINEER Office Visit Department of Dermatology in [address] [phone] Maria Eugenia Colunga APRN, AurelioNYony., M.S.N. [address] [place] [phone] 05/08/2024 10:30 AM DATA CENTER ENGINEER Clinical Communication Virtual Review in [place], [place] 200 [place] [phone] 05/11/2024 9:00 AM DATA CENTER ENGINEER Appointment Department of Laboratory Medicine and Pathology, [facility], in [address] [phone] Alice Hill P.A.-C., M.S. 05/11/2024 1:00 PM DATA CENTER ENGINEER Office Visit Division of Gastroenterology in [address] [phone] Sherly Loza APRN, C.NShaqP., M.S.N. [address] [place] [phone] 05/11/2024 3:00 PM DATA CENTER ENGINEER Comprehensive Visit Department of Dermatology in [address] [phone] Alice Hill P.A.-C., M.S. documented as of this encounter Procedures Procedure Name Priority Date/Time Associated Diagnosis Comments RENAL FUNCTION PANEL, S Routine 02/18/2024 1:52 PM CDT Diabetes Mellitus Type 1 (HCC) CBC WITH DIFFERENTIAL, B Routine 02/18/2024 1:52 PM CDT Diabetes Mellitus Type 1 (HCC) HEMOGLOBIN A1C, B Routine 02/18/2024 1:5 2 PM CDT Diabetes Mellitus Type 1 (HCC) documented in this encounter Results * (ABNORMAL) Hemoglobin A1c [...] Eun Delarosa APRN, C.N.P. LAB BLOOD ADD-ON [facility] [address] [place] [address], [facility] DTL [facility] [address] [place] [address] * CBC with Differential, Blood (02/18/2024 1:52 [...] Eun Delarosa APRN, C.N.P. LAB BLOOD ADD-ON [facility] [address] [place] [address], [facility] D[facility] [address] [place] [address] [facility] [address] [place] [address] * (ABNORMAL) Renal Function Panel (02/18/2024 1:52 [...] Eun Delarosa APRN C.N.P. LAB BLOOD ADD-ON [facility] [address] [place] [address], [facility] D[facility] [address] [place] [address] documented in this encounter Visit Diagnoses Diagnosis Diabetes Mellitus Type 1 (HCC) documented in this encounter Care Teams Tree Killer Relationship Specialty Start Date End Date Elsewhere, Pcp PCP - General Family Medicine 02/11/21 documented as of this encounter
--- OUTSIDE RECORDS SUMMARY | 2024-03-03 09:34 | XMS_ITS | Encounter Summary ---
Author Organization [facility] Address [address] [place] [address] Care Team Providers Care Local Area Network Systems Adminstrator Name Role Phone Elsewhere, Pcp Primary Care Provider Unavailabl e Encounter Details Date Type Department Care Team (Latest Contact Info) Description 02/17/2024 7:23 AM CDT - 02/17/2024 11:59 PM CDT Hospital Encounter Department of Laboratory Medicine and Pathology, [facility] in [place], [place] [address] [place] [phone] Eun Delarosa, DAVID, C.N.P. [address] [place] [phone] Diabetes Mellitus Type 1 (HCC) Discharge Disposition: [...] How often do you attend baptism or methodist serv ices? Never 04/27/2022 Do you belong [...] and heating? Not hard at all 04/29/2023 [facility] - Occupational Stress Questionnaire Answer Date [...] your living situation today? I have a [facility] place to live 04/29/2023 Education Answer [...] CDT Comprehensive Visit Department of Urology in [place], [place] 200 [place] [address] Anderson Parra M.D. 200 [place] [address] 03/27/2024 9:00 AM FRUIT HARVESTER Clinical Support Department of Nutrition and Diabetes Education in [place], [place] [address] [place] [phone] Eun Delarosa APRN, Alex.N.P. [address] [place] [phone] Sherly Echeverria R.N., [facility] [address] [place] [phone] 04/18/2024 2:40 PM FRUIT HARVESTER Office Visit Department of Dermatology in [address] [phone] Maria Eugenia Colunga APRN, AurelioNYony., M.S.N. [address] [place] [phone] 05/08/2024 10:30 AM FRUIT HARVESTER Clinical Communication Virtual Review in [place], [place] 200 [place] [phone] 05/11/2024 9:00 AM FRUIT HARVESTER Appointment Department of Laboratory Medicine and Pathology, [facility], in [address] [phone] Alice Hill P.A.-C., M.S. 05/11/2024 1:00 PM FRUIT HARVESTER Office Visit Division of Gastroenterology in [address] [phone] Sherly Loza APRN, C.NShaqP., M.S.N. [address] [place] [phone] 05/11/2024 3:00 PM FRUIT HARVESTER Comprehensive Visit Department of Dermatology in [address] [phone] Alice Hill P.A.-C., M.S. documented as of this encounter Procedures Procedure Name Priority Date/Time Associated Diagnosis Comments ALBUMIN, RANDOM, U Routine 02/17/2024 7: 38 AM CDT Diabetes Mellitus Type 1 (HCC) documented in this encounter Results * Albumin, Random, Urine (02/17/2024 7:38 AM CDT) Albumin, Random, U <5.0 mg/L 2023 10:58 AM CDT DTL Comment: ----ADDITIONAL INFORMATION---- This test has been modified from the car salesperson's instructions. Its performance characteristics were determined by [facility] in a manner consistent with CLIA requirements. [...] 7:38 AM CDT 02/17/2024 8:52 AM CDT Aurelio Kiran APRNNShaqP. LAB URINE ORDERABLES [facility] [address] [place] [address], [facility] [address] [place] [address] documented in this encounter Visit Diagnoses Diagnosis Diabetes Mellitus Type 1 (HCC) documented in this encounter Care Teams Local Area Network Systems Adminstrator Relationship Specialty Start Date End Date Elsewhere, Pcp PCP - General Family Medicine 02/11/21 documented as of this encounter
--- OUTSIDE RECORDS SUMMARY | 2024-03-03 09:34 | XMS_ITS | Encounter Summary ---
Author Organization [facility] Address [address] [place] [address] Care Team Providers Care Water Attendant Name Role Phone Elsewhere, Pcp Primary Care Provider Unavailabl e Reason for Referral * Outpatient (Routine) - Closed Specialty Diagnoses / Procedures Referred By Juan maguire Referred To Contact Diagnoses Diabetes Mellitus Type 1 (HCC) Procedures US Kidneys Bilateral with Bladder Eun Delarosa APRN, C.N.P. [address] [place] [phone] [facility] Referral ID Status Reason Start Date Expiration Date Visits Re quested Visits Authorized [id number] Closed 02/17/2024 02/16/2025 1 1 Reason for Visit * Outpatient (Routine) - Closed Specialty Diagnoses / Procedures Referred By Juan maguire Referred To Contact Diagnoses Diabetes Mellitus Type 1 (HCC) Procedures US Kidneys Bilateral with Bladder Eun Delarosa APRN, C.N.P. [address] [place] [phone] [facility] Referral ID Status Reason Start Date Expiration Date Visits Re quested Visits Authorized [id number] Closed 02/17/2024 02/16/2025 1 1 Encounter Details Date Type Department Care Team (Latest Contact Info) Description 02/18/2024 3:02 PM CDT - 02/18/2024 11:59 PM CDT Hospital Encounter Department of Radiology, [place], in [place], [place] [address] [place] [phone] Eun Delarosa, DAVID, C.N.P. 200 [place] [address] Diabetes Mellitus Type 1 (HCC) Discharge Disposition: [...] week 04/27/2022 How often do you attend christianity or latter-day serv ices? Never 04/27/2022 Do you belong to any clubs o r organizations such as christianity groups, unions, fraternal or athletic groups, or [...] and heating? Not hard at all 04/29/2023 [facility] - Occupational [...] your living situation today? [facility] 04/29/2023 Education Answer Date [...] CDT Comprehensive Visit Department of Urology in [place], [place] [address] [place] [address] Anderson Parra M.D. [address] [place] [phone] 03/27/2024 9:00 AM SHEAR GRINDER OPERATOR HELPER Clinical Support Department of Nutrition and Diabetes Education in [place], [place] [address] [place] [address] Eun Delarosa APRN, C.N.P. [address] [place] [phone] Sherly Echeverria R.N., [facility] [address] [place] [phone] 04/18/2024 2:40 PM SHEAR GRINDER OPERATOR HELPER Office Visit Department of Dermatology in [place], [place] [address] [place] [phone] Maria Eugenia Colunga APRN, C.N.P., M.S.N. [address] [place] [phone] 05/08/2024 10:30 AM SHEAR GRINDER OPERATOR HELPER Clinical Communication Virtual Review in [place], [place] 200 [place] [address] 05/11/2024 9:00 AM SHEAR GRINDER OPERATOR HELPER Appointment Department of Laboratory Medicine and Pathology, [facility] in [place], [place] [address] [place] [phone] Alice Hill P.A.-C., M.S. 05/11/2024 1:00 PM SHEAR GRINDER OPERATOR HELPER Office Visit Division of Gastroenterology in [place], [place] [address] [place] [phone] Sherly Loza APRN CShaqN.P., M.S.N. [address] [place] [phone] 05/11/2024 3:00 PM SHEAR GRINDER OPERATOR HELPER Comprehensive Visit Department of Dermatology in [address] [phone] Alice Hill P.A.-C., M.S. documented as of this encounter Procedures Procedure Name Priority Date/Time Associated Diagnosis Comments US KIDNEYS BILATERAL WITH BLADDER RAD - Routine (most inpatients and all outpatients) 02/18/2024 3:41 PM CDT Diabetes Mellitus Type 1 (HCC) documented in this encounter Results * US Kidneys Bilateral with Bladder (02/18/2024 [...] the leftkidney, unchanged. Eun Delarosa APRN, C.N.P. [place] [facility] documented in this encounter Visit Diagnoses Diagnosis Diabetes Mellitus Type 1 (HCC) documented in this encounter Care Teams Water Attendant Relationship Specialty Start Date End Date Elsewhere, Pcp PCP - General Family Medicine 02/11/21 documented as of this encounter
--- OUTSIDE RECORDS SUMMARY | 2024-03-03 09:34 | XMS_ITS | Referral Summary ---
Author Organization [facility] Address [address] [place] [address] Care Team Providers Care Chain Hoist Operator Name Role Phone Elsewhere, Pcp Primary Care Provider Unavailabl e Source Comments Patient records contain information from all sites at [facility]. For routine questions regarding patient records, call [phone] during business hours, M-F 8:00 AM - 5:00 PM Central Time. Record requests for emergency care only can be directed to [phone] at any time.[facility] Encounters Date Type Department Care Team Description 03/01/2024 11:32 AM CDT - 03/01/2024 11:59 PM CDT Hospital Encounter Department of Radiology, [facility] in [place], [place] [address] [place] [phone] Sade Bush M.D., Ph.D. Stone Kidney And Ureteral Discharge Disposition: Home or Self Care 02/28/2024 1:00 PM CDT Comprehensive Visit Division of Nephrology and Hypertension in [place], [place] [address] [place] [phone] Sade Bush M.D., Ph.D. Chronic Kidney Disease (CKD), Stage 3a Glomerular Filtration Rate (GFR) 45 To 59 (HCC) (Primary Dx); Diabetes Mellitus Type 1 (HCC); Stone Kidney And Ureteral 02/18/2024 1:25 PM CDT - 02/18/2024 3:01 PM CDT Hospital Encounter Department of Laboratory Medicine and Pathology, [facility] in [place], [place] [address] [place] [phone] Eun Delarosa APRN, C.N.P. Diabetes Mellitus Type 1 (HCC) Discharge Disposition: Home or Self Care 02/18/2024 1:25 PM CDT - 02/18/2024 3:01 PM CDT Hospital Encounter Department of Laboratory Medicine and Pathology, [facility] in [place], [place] [address] [place] [phone] Eun Delarosa APRN, C.N.P. Diabetes Mellitus Type 1 (HCC) Discharge Disposition: Home or Self Care 02/18/2024 3:02 PM CDT - 02/18/2024 11:59 PM CDT Hospital Encounter Department of Radiology, [facility] in [place], [place] [address] [place] [phone] Eun Delarosa APRN, C.N.P. Diabetes Mellitus Type 1 (HCC) Discharge Disposition: Home or Self Care 02/17/2024 Orders Only Division of Endocrinology in [place], [place] [address] [place] [phone] Eun Delarosa APRN, C.N.P. Diabetes Mellitus Type 1 (HCC) (Primary Dx) 02/17/2024 7:23 AM CDT - 02/17/2024 11:59 PM CDT Hospital Encounter Department of Laboratory Medicine and Pathology, [facility] in [place], [place] [address] [place] [phone] Eun Delarosa APRN, C.N.P. Diabetes Mellitus Type 1 (HCC) Discharge Disposition: Home or Self Care 02/17/2024 7:23 AM CDT - 02/17/2024 11:59 PM CDT Hospital Encounter Department of Laboratory Medicine and Pathology, [facility] in [place], [place] [address] [place] [phone] Eun Delarosa APRN, C.N.P. Diabetes Mellitus Type 1 (HCC) Discharge Disposition: Home or Self Care 02/17/2024 11:00 AM CDT Office Visit Division of Endocrinology in [place], [place] [address] [place] [phone] Eun Delarosa APRN, C.N.P. Diabetes Mellitus Type 1 (HCC) 02/16/2024 3:15 PM CDT Clinical Communication Virtual Review in [address] [phone] Pre-visit Intake 01/20/2024 11:00 AM CDT Office Visit Department of Dermatology in [place], [place] [address] [place] [phone] Ambar Shafer APRN, C.N.P., Roseline Friedman (Primary Dx) Discharge Disposition: Home or Self Care 01/19/2024 10:30 AM CDT Clinical Communication Virtual Review in [address] [phone] Pre-visit Intake 12/28/2023 Refill Division of Gastroenterology in [place], [place] [address] [place] [phone] Dane Tanner M.D. Med Refill 12/16/2023 2:00 PM CDT Office Visit Department of Orthopedic Surgery in [address] [phone] Shahana Verde D.P.M. 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 Never 04/27/2022 Do you belong to any clubs o r organizations such as shinto groups, unions, fraternal or athletic groups, or [...] and heating? Not hard at all 04/29/2023 [facility] - Occupational Stress [...] living situation today? I have a [facility] place to live 04/29/2023 Education Answer [...] DT Respiratory Rate 17 04/30/2022 10:02 AM PAROLE AGENT Oxygen Saturation 98% 04/30/2022 10:03 AM PAROLE AGENT Inhaled Oxygen Concentration - - Weight 109 kg (240 lb 8.4 oz) 02/28/2024 12:59 P M CDT Height 166 cm (5' 5.35) 02/17/2024 10:02 AM CDT Body Mass Index 39.59 02/17/2024 10:02 AM CDT Plan of Treatment Upcoming Encounters Date Type Department Care Team (Latest Contact Info) Description 03/13/2024 1:00 PM CDT Comprehensive Visit Department of Urology in [place], [place] 200 [place] [phone] Anderson Parra M.D. 200 [place] [phone] 03/27/2024 9:00 AM PAROLE AGENT Clinical Support Department of Nutrition and Diabetes Education in [place], [place] 200 [place] [phone] Eun Delarosa, ENDOSCOPY TECHNICAN, C.N.P. [address] [place] [phone] Sherly Echeverria R.N., [facility] [address] [place] [phone] 04/18/2024 2:40 PM PAROLE AGENT Office Visit Department of Dermatology in [place], [place] [address] [place] [phone] Maria Eugenia Colunga APRN, C.NBk, M.S.N. [address] [place] [phone] 05/08/2024 10:30 AM PAROLE AGENT Clinical Communication Virtual Review in [place], [place] 200 [place] [phone] 05/11/2024 9:00 AM PAROLE AGENT Appointment Department of Laboratory Medicine and Pathology, [facility] in [place], [place] [address] [place] [phone] Alice Hill P.A.-C., M.S. 05/11/2024 1:00 PM PAROLE AGENT Office Visit Division of Gastroenterology in [address] [phone] Sherly Loza APRN, C.NYony., M.S.N. [address] [place] [phone] 05/11/2024 3:00 PM PAROLE AGENT Comprehensive Visit Department of Dermatology in [place], [place] [address] [place] [phone] Alice Hill P.A.-C., M.S. Procedures Procedure Name Priority Date/Time Associated Diagnosis [...] unchanged. Eun Delarosa APRN, C.N.P. IMG US WA OCEDURES * Dipstick, Urine (02/18/2024 1:58 PM [...] Eun Delarosa APRN, C.N.P. LAB URINE ORDERABLES [facility] [address] [facility] [place] [place] [address] [place] [address] * Microscopic Automated (02/18/2024 1:58 PM CDT) Microscopy Normal 02/18/2024 2:46 PM CDT DTL RBC None Seen <3 /hpf 02/18/2024 2:46 PM CDT DTL WBC None Seen /hpf 02/18/2024 2:46 PM CDT DTL Comment: ----REFERENCE VALUE---- <4 ??(Males) <11 (Females) Squamous Epithelial Cells, U 1-3 /hpf 02/18/2024 2:46 PM CDT DT Urine 02/18/2024 1:58 PM CDT 02/18/2024 2:15 PM CDT Eun Delarosa APRN C.N.P. LAB URINE ORDERABLES [facility] [address] [place] [address], [facility] 200 [place] [address] * pH, Urine (02/18/2024 1:58 PM CDT) pH, U 6.2 4.5 - 8.0 02/18/2024 3:5 5 PM CDT DT Urine 02/18/2024 1:58 PM CDT 02/18/2024 2:15 PM CDT Eun Delarosa APRN, C.N.P. LAB URINE ORDERABLES Performing Organization Address City/[facility]/ZIP Co de Phone Number [facility] [address] [place] [address], [facility] 200 [place] [address] * Osmolality, Urine (02/18/2024 1:58 PM CDT) Osmolality, U 223 150 - 1150 mOsm/kg 02/18/2024 3:55 PM CDT DT Urine 02/18/2024 1:58 PM CDT 02/18/2024 2:15 PM CDT Eun Delarosa APRN, C.N.P. LAB URINE ORDERABLES [facility] [address] [place] [address], [facility] [address] [place] [address] * Urinalysis, with Microscopic: Urine, Midstream (02/18/2024 [...] Eun Delarosa APRN C.N.P. LAB URINE ORDERABLES [facility] [address] [place] [address], [facility] [place] [facility] [place] [address] [place] [address] * (ABNORMAL) Renal Function Panel (02/18/2024 1:52 [...] CDT 02/18/2024 2:27 PM CDT Eun Delarosa APRN, C.N.P. LAB BLOOD ADD-ON [address] [address], [facility] [address] [address] * CBC with Differential, Blood (02/18/2024 1:52 [...] Eun Delarosa APRN C.N.P. LAB BLOOD ADD-ON [facility] 200 [place] [address], [facility] DTL [facility] 200 [place], [place] [phone] [place] [address] 200 [place] [address] * (ABNORMAL) Hemoglobin A1c (02/18/2024 1:52 PM [...] CDT 02/18/2024 2:22 PM CDT Aurelio Kiran APRNNShaqP. LAB BLOOD ADD-ON Performing Organization Address [facility] Co de Phone Number [facility] 200 [place], [place] [phone] [place] [address] * Albumin, Random, Urine (02/17/2024 7:38 AM CDT) Albumin, Random, U <5.0 mg/L 2023 10:58 AM CDT DT Comment: ----ADDITIONAL INFORMATION---- This test has been modified from the director process improvement's instructions. Its performance characteristics were determined by [facility] in a manner consistent with CLIA requirements. [...] CDT 02/17/2024 8:52 AM CDT Aurelio Kiran APRNN.P. LAB URINE ORDERABLES Performing Organization Address [facility] Co de Phone Number [facility] 200 [place] [address], [facility] 200 [place] [address] * (ABNORMAL) S-TSH (Thyroid-Stimulating Hormone - Sensitive) (02/17/2024 7:33 AM CDT) TSH, Sensitive 6.0(H) 0.3 - 4.2 mIU/L 02/17/2024 9:19 AM CDT DTL Blood (Blood, Venous) 02/17/2024 7:33 AM CDT 02/17/2024 8:24 AM CDT Aurelio Kiran APRNN.Adan. LAB BLOOD ADD-ON Performing Organization Address [facility] de Phone Number [facility] [address] [place], [place] [phone] [place] [address] [facility] [place] [facility] [place] 200 [place] [address] * (ABNORMAL) Creatinine with Estimated GFR (02/17/2024 7:33 AM CDT) Creatinine 1.16(H) 0.59 - 1.04 mg/dL 02/17/2024 9:19 AM CDT DTL Estimated GFR (eGFR) 56(L) >=60 mL/min/BSA 02/17/2024 9:19 AM CDT DTL Comment: Estimated GFR calculated using the 2020 CKD_EPI creatinine equation. Blood (Blood, Venous) 02/17/2024 7:33 AM CDT 02/17/2024 8:24 AM CDT Aurelio Kiran APRNNYony. LAB BLOOD ADD-ON Performing Organization Address [facility] de Phone Number [facility] 200 [place] [address], [facility] [place] [facility] [place] [address] [place] [address] * (ABNORMAL) Lipid Panel (10/28/2023 9:15 AM [...] CDT 10/28/2023 9:57 AM CDT Eun Delarosa APRN C.N.P. LAB BLOOD ADD-ON [facility] [address] [place] [address], [facility] [place] [facility] [place] [address] [place] [address] from Last 3 Months or Most Recently Relevant to Health Maintenance Care Teams Chain Hoist Operator Relationship Specialty Start Date End Date Elsewhere, Pcp PCP - General Family Medicine 02/11/21
--- OUTSIDE RECORDS SUMMARY | 2024-03-03 09:34 | XMS_ITS | Encounter Summary ---
Author Organization [facility] Address [address] [place] [address] Care Team Providers Care Acoustical Tile Carpenters Supervisor Name Role Phone Elsewhere, Pcp Primary Care Provider Unavailabl e Encounter Details Date Type Department Care Team (Latest Contact Info) Description 02/18/2024 1:25 PM CDT - 02/18/2024 3:01 PM CDT Hospital Encounter Department of Laboratory Medicine and Pathology, [facility] in [place], [place] [address] [place] [phone] Eun Delarosa, DAVID, C.N.P. [address] [place] [phone] Diabetes Mellitus Type 1 (HCC) Discharge Disposition: [...] week 04/27/2022 How often do you attend adventist or hoahaoism serv ices? Never 04/27/2022 Do you belong to any clubs o r organizations such as adventist groups, unions, fraternal or athletic groups, or [...] and heating? Not hard at all 04/29/2023 [facility] - Occupational Stress Questionnaire Answer Date [...] your living situation today? I have a [facility] place to live 04/29/2023 Education Answer Date [...] CDT Comprehensive Visit Department of Urology in [place], [place] 200 [place] [phone] Anderson Parra M.D. 200 [place] [phone] 03/27/2024 9:00 AM MEDICAL EDITOR Clinical Support Department of Nutrition and Diabetes Education in [place], [place] [address] [place] [phone] Eun Delarosa APRN, Alex.N.P. [address] [place] [phone] Sherly Echeverria R.N., [facility] [address] [place] [phone] 04/18/2024 2:40 PM MEDICAL EDITOR Office Visit Department of Dermatology in [address] [phone] Maria Eugenia Colunga APRN, AurelioNYony., M.S.N. [address] [place] [phone] 05/08/2024 10:30 AM MEDICAL EDITOR Clinical Communication Virtual Review in [place], [place] 200 [place] [phone] 05/11/2024 9:00 AM MEDICAL EDITOR Appointment Department of Laboratory Medicine and Pathology, [facility], in [address] [phone] Alice Hill P.A.-C., M.S. 05/11/2024 1:00 PM MEDICAL EDITOR Office Visit Division of Gastroenterology in [address] [phone] Sherly Loza APRN, C.NShaqP., M.S.N. [address] [place] [phone] 05/11/2024 3:00 PM MEDICAL EDITOR Comprehensive Visit Department of Dermatology in [address] [phone] Alice Hill P.A.-C., M.S. documented as of this encounter Procedures Procedure Name Priority Date/Time Associated Diagnosis Comments DIPSTICK, U Routine 02/18/2024 1:58 PM CDT MICROSCOPIC AUTOMATED Routine 02/18/2024 1:58 PM CDT PH, U Routine 02/18/2024 1:58 PM CDT OSMOLALITY, U Routine 02/18/2024 1:58 PM CDT URINALYSIS WITH MICROSCOPIC Routine 02/18/2024 1:58 PM CDT Diabetes Mellitus Type 1 (HCC) documented in this encounter Results * Dipstick, Urine (02/18/2024 1:58 PM CDT) [...] 02/18/2024 2:15 PM CDT Eun Delarosa APRN CShaqN.P. LAB URINE ORDERABLES [facility] [address] [place] [address], [facility] [[email or web address]] [facility] [address] [place] [address] * pH, Urine (02/18/2024 1:58 PM CDT) pH, U 6.2 4.5 - 8.0 02/18/2024 3:5 5 PM CDT DTL Urine 02/18/2024 1:58 PM CDT 02/18/2024 2:15 PM CDT Alex Kiran APRN.N.P. LAB URINE ORDERABLES Performing Organization Address City/[facility]/ZIP Co de Phone Number [facility] 200 [place] [address], [facility] 200 [place] [address] * Osmolality, Urine (02/18/2024 1:58 PM CDT) Osmolality, U 223 150 - 1150 mOsm/kg 02/18/2024 3:55 PM CDT DTL Urine 02/18/2024 1:58 PM CDT 02/18/2024 2:15 PM CDT Alex Kiran APRN.N.P. LAB URINE ORDERABLES Performing Organization Address [facility] Co de Phone Number [facility] 200 [place] [address], [facility] 200 [place] [address] * Microscopic Automated (02/18/2024 1:58 PM CDT) [...] APRN.N.P. LAB URINE ORDERABLES Performing Organization Address City/[facility]/ZIP Co de Phone Number [facility] 200 [place] [address], [place] DTL [facility] 200 [place] [address] * Urinalysis, with Microscopic: Urine, Midstream (02/18/2024 [...] Eun Delarosa APRN C.N.P. LAB URINE ORDERABLES [facility] 200 [place] [address], [facility] [[email or web address]] DTL [facility] 200 [place] [address] documented in this encounter Visit Diagnoses Diagnosis Diabetes Mellitus Type 1 (HCC) documented in this encounter Care Teams Acoustical Tile Carpenters Supervisor Relationship Specialty Start Date End Date Elsewhere, Pcp PCP - General Family Medicine 02/11/21 documented as of this encounter
--- OUTSIDE RECORDS SUMMARY | 2024-03-03 09:34 | XMS_ITS | Encounter Summary ---
Author Organization [facility] Address [address] [place] [phone] Care Team Providers Care Cartographic Engineer Name Role Phone Elsewhere, Pcp Primary Care Provider Unavailabl e Reason for Referral * Outpatient (Routine) - Authorized Specialty Diagnoses / Procedures Referred By Juan t Referred To Contact Nephrology and Hypertension Sade Bush M.D., Ph.D. [address] [place] [phone] [facility] Referral ID Status Reason Start Date Expiration Date V isits Requested Visits Authorized [id number] Authorized 03/02/2024 09/01/2025 1 1 * MRI/CAT/PET Scan (Routine) - Closed Specialty Diagnoses / Procedures Referred By Contac t Referred To Contact Radiology Diagnoses Stone Kidney And Ureteral Procedures CT Abdomen Pelvis without IV Contrast Sade Bush M.D., Ph.D. [address] [place] [phone] [facility] Referral ID Status Reason Start Date Expiration Date Visits Re quested Visits Authorized [id number] Closed 02/28/2024 02/27/2025 1 1 * Outpatient (Routine) - Authorized Specialty Diagnoses / Procedures Referred By Contnessa t Referred To Contact Urology Diagnoses Stone Kidney And Ureteral Sade Bush M.D., Ph.D. [address] [place] [phone] [facility] Referral ID Status Reason Start Date Expiration Date V isits Requested Visits Authorized [id number] Authorized 02/28/2024 08/29/2025 1 1 Reason for Visit * Reason Comments Consult * Outpatient (Routine) - Closed Specialty Diagnoses / Procedures Referred By Contac t Referred To Contact Nephrology and Hypertension Diagnoses Diabetes Mellitus Type 1 (HCC) Eun Delarosa APRN, C.N.P. [address] [place] [phone] [facility] Referral ID Status Reason Start Date Expiration Date V isits Requested Visits Authorized [id number] Closed Specialty Services Required 02/17/2024 08/18/2025 1 1 Encounter Details Date Type Department Care Team (Latest Contact Info) Description 02/28/2024 1:00 PM CDT Comprehensive Visit Division of Nephrology and Hypertension in [place], [place] [address] [place] [phone] Sade Bush M.D., Ph.D. [address] [place] [phone] Chronic Kidney Disease (CKD), Stage 3a Glomerular Filtration Rate (GFR) 45 To 59 (HCC) (Primary Dx); Diabetes Mellitus Type 1 (HCC); [facility] Ureteral Social History Tobacco Use Types Packs/Day Years [...] week 04/27/2022 How often do you attend moravian or christianity serv ices? Never 04/27/2022 Do you belong to any clubs o r organizations such as moravian groups, unions, fraternal or athletic groups, or [...] and heating? Not hard at all 04/29/2023 [facility] [place] of Occupat ional Health - Occupational Stress [...] your living situation today? [facility] 04/29/2023 Education Answer [...] PM CDT documented as of this encounter Last Filed Vital Signs Vital Sign Reading Time Taken Comments Blood Pressure 116/76 02/28/2024 1:49 PM CDT Pulse 78 02/28/2024 1:49 PM CDT Temperature 36.3 ??C (97.3 ??F) 02/28/2024 12:59 PM C DT Respiratory Rate - - Oxygen Saturation - - Inhaled Oxygen Concentration - - Weight 109 kg (240 lb 8.4 oz) 02/28/2024 12:59 P M CDT Height - - Body Mass Index 39.59 02/17/2024 10:02 AM CDT documented in this encounter Plan of Treatment Upcoming Encounters Date Type Department Care Team (Latest Contact Info) Description 03/13/2024 1:00 PM CDT Comprehensive Visit Department of Urology in [place], [place] [address] [place] [phone] Anderson Parra M.D. [address] [place] [phone] 03/27/2024 9:00 AM CLEANING HANDYMAN Clinical Support Department of Nutrition and Diabetes Education in [place], [place] [address] [place] [phone] Eun Delarosa, DAVID, C.N.P. [address] [place] [phone] Sherly Echeverria R.N., [facility] [address] [place] [phone] 04/18/2024 2:40 PM CLEANING HANDYMAN Office Visit Department of Dermatology in [address] [phone] Maria Eugenia Colunga, DAVID, C.N.P., M.S.N. [address] [place] [phone] 05/08/2024 10:30 AM CLEANING HANDYMAN Clinical Communication Virtual Review in [place], [place] 200 [place] [phone] 05/11/2024 9:00 AM CLEANING HANDYMAN Appointment Department of Laboratory Medicine and Pathology, [facility], in [address] [phone] Alice Hill P.A.-C., M.S. 05/11/2024 1:00 PM CLEANING HANDYMAN Office Visit Division of Gastroenterology in [address] [phone] Sherly Loza APRN, C.N.P., M.S.N. [address] [place] [phone] 05/11/2024 3:00 PM CLEANING HANDYMAN Comprehensive Visit Department of Dermatology in [place], [place] [address] [place] [phone] Alice Hill P.A.-C., M.S. Scheduled Orders Name Type Priority Associated Diagnoses Orde r Schedule Supersaturation, 24 hour, Urine Lab Routine Stone Kidney And Ureteral Expected: 02/27/2025, Expires: 05/30/2025 Renal Function Panel Lab Routine Chronic Kidney Disease (CKD), Stage 3a Glomerular Filtration Rate (GFR) 45 To 59 (HCC) Expected: 03/01/2025 (Approximate), Expires: 06/02/2025 CBC with Differential, Blood Lab Routine Chronic Kidney Disease (CKD), Stage 3a Glomerular Filtration Rate (GFR) 45 To 59 (HCC) Expected: 03/01/2025 (Approximate), Expires: 06/02/2025 Protein/Creatinine Ratio, Random, Urine Lab Routine Chronic Kidney Disease (CKD), Stage 3a Glomerular Filtration Rate (GFR) 45 To 59 (HCC) Expected: 03/01/2025 (Approximate), Expires: 06/02/2025 Cystatin C with Estimated GFR Lab Routine Chronic Kidney Disease (CKD), Stage 3a Glomerular Filtration Rate (GFR) 45 To 59 (HCC) Expected: 03/01/2025 (Approximate), Expires: 06/02/2025 Albumin, Random, Urine Lab Routine Chronic Kidney Disease (CKD), Stage 3a Glomerular Filtration Rate (GFR) 45 To 59 (HCC) Expected: 03/01/2025 (Approximate), Expires: 06/02/2025 Uric Acid Lab Routine Chronic Kidney Disease (CKD), Stage 3a Glomerular Filtration Rate (GFR) 45 To 59 (HCC) Expected: 03/02/2025, Expires: 06/02/2025 Urinalysis, with Microscopic: Urine, Midstream Lab Routine Chronic Kidney Disease (CKD), Stage 3a Glomerular Filtration Rate (GFR) 45 To 59 (HCC) Expected: 03/02/2025, Expires: 06/02/2025 Parathyroid Hormone (PTH) Lab Routine Chronic Kidney Disease (CKD), Stage 3a Glomerular Filtration Rate (GFR) 45 To 59 (HCC) Expected: 03/02/2025, Expires: 06/02/2025 25-Hydroxyvitamin D2 and D3 Lab Routine Chronic Kidney Disease (CKD), Stage 3a Glomerular Filtration Rate (GFR) 45 To 59 (HCC) Expected: 03/02/2025, Expires: 06/02/2025 Supersaturation, 24 hour, Urine Lab Routine Stone Kidney And Ureteral Expected: 03/02/2025, Expires: 06/02/2025 Scheduled Referrals Name Type Priority Associated Diagnoses Order Schedule Urology - General - stones (bladder / kidney) consult (clinic) Outpatient Referral Routine Stone Kidney And Ureteral Expected: 02/28/2024, Expires: 05/30/2025 Nephrology and Hypertension office visit (clinic) Outpatient Referral Routine Expected: 03/02/2025 (Approximate), Expires: 06/02/2025 documented as of this encounter Results * CT Abdomen Pelvis [...] documented in this encounter Visit Diagnoses Diagnosis Chronic Kidney Disease (CKD), Stage 3a Glomerular Filtration Rate (GFR) 45 To 59 (HCC)- Primary Diabetes Mellitus Type 1 (HCC) [facility]reteral [facility] Ureteral documented in this encounter Care Teams Cartographic Engineer Relationship Specialty Start Date End Date Elsewhere, Pcp PCP - General Family Medicine 02/11/21 documented as of this encounter
--- OUTSIDE RECORDS SUMMARY | 2024-03-03 09:35 | XMS_ITS | Encounter Summary ---
Author Organization [facility] Address [address] [place] [address] Care Team Providers Care Inker And Opaquer Name Role Phone Elsewhere, Pcp Primary Care Provider Unavailabl e Reason for Referral * Outpatient (Routine) - Closed Specialty Diagnoses / Procedures Referred By Juan maguire Referred To Contact Dermatology Shahana Verde D.P.M. [address] [place] [phone] Sherly Rodriguez, [facility], [facility] Referral ID Status Reason Start Date Expiration Date Visits Re quested Visits Authorized [id number] Closed 12/16/2023 06/16/2025 1 1 Reason for Visit * Outpatient (Routine) - Closed Specialty Diagnoses / Procedures Referred By Juan maguire Referred To Contact Orthopedic Surgery Shahana Verde D.P.M. [address] [place] [phone] [facility] Referral ID Status Reason Start Date Expiration Date Visits Re quested Visits Authorized [id number] Closed 2023 12/16/2024 1 1 Encounter Details Date Type Department Care Team (Late st Contact Info) Description 12/16/2023 2:00 PM CDT Office Visit Department of Orthopedic Surgery in [place], [place] [address] [place] [phone] Shahana Verde D.P.M. 200 [place] [phone] Wart Plantar (Primary Dx); Pain Foot Right; Diabetes Mellitus Type 1 (HCC) Social History Tobacco Use Types Packs/Day Years [...] week 04/27/2022 How often do you attend catholic or mandaeism serv ices? Never 04/27/2022 Do you belong to any clubs o r organizations such as catholic groups, unions, fraternal or athletic groups, or [...] and heating? Not hard at all 04/29/2023 [facility] - Occupational Stress Questionnaire Answer Date [...] PM CDT documented as of this encounter Progress Notes * Shahana Verde D.P.M. - 12/16/2023 2:00 PM CDT SUBJECTIVE HISTORY OF PRESENT ILLNESS Ms. Shavonne Brush is a 53 y.o. female with a past medical history of diabetes mellitus type 1, depression, hypothyroidism, inflammatory arthritis, ulcerative colitis, and migraines who returns to clinic today for a wart on her right foot. She states that overall she has about the same as last appointment. She did not noticed much improvement after the trichloroacetic acid treatment. Now that she is back from her trip, she would like to do something a little bit more aggressive to treat the wart. She denies any additional pedal complaints at this time. OBJECTIVE PHYSICAL EXAMINATION General: Alert and Oriented x 3, No apparent distress VASCULAR EXAM: Right dorsalis pedis pulse 2, Right posterior tibial pulse 2 Left dorsalis pedis pulse 2, Left posterior tibial pulse 2 Capillary fill time: Right < 3 seconds, Left < 3 seconds Pedal hair present on the right and present on the left Skin temperature: Right Foot warm Left Foot warm Skin appearance is normal bilaterally Pitting edema absent NEUROLOGICAL EXAM: Light touch sensation intact to bilateral feet DERMATOLOGICAL EXAM: Nails normal length Hyperkeratotic tissue present to the plantar lateral right foot with multiple black punctate spots,slightly improved from last appointment Skin normal bilaterally. Erythema absent No ecchymosis noted No open wounds noted No acute signs of infection MUSCULOSKELETAL EXAM: No pain on palpation to the right foot No pain with passive range of motion No pain with active range of motion Non-pitting edema absent Strength: Right Left Inversion 5/5 5/5 Eversion 5/5 5/5 Dorsiflexion 5/5 5/5 Plantarflexion 5/5 5/5 Slight lateral deviation of the right hallux and medial deviation of the second toe. BIOMECHANICAL EXAM: Gait: non-antalgic Ambulatory aids: none DIAGNOSTICS Lab Results Component Value Date HGBA1C 7.6 (H) 10/28/2023 ASSESSMENT / PLAN #1 Plantar wart, improving #2 Right foot pain #3 Diabetes mellitus type 1 Discussed treatment options for the wart including liquid nitrogen and Cantharone. Given that she is diabetic, I do think that liquid nitrogen would be a better first line treatment. Unfortunately, we do not have liquid nitrogen in the clinic here. Therefore I did place an order for Dermatology to see her for this issue. If her where it was not resolving with the nitrogen we can then proceed to try and Cantharone. She will follow up with me as needed. Shahana Verde D.P.M. 12/16/2023 documented in this encounter Plan of Treatment Upcoming Encounters Date Type Department Care Team (Latest Contact Info) Description 03/13/2024 1:00 PM CDT Comprehensive Visit Department of Urology in [place], [place] [address] [place] [phone] Anderson Parra M.D. [address] [place] [phone] 03/27/2024 9:00 AM PLATER PRODUCTION Clinical Support Department of Nutrition and Diabetes Education in [place], [place] [address] [place] [phone] Eun Delarosa APRN, C.N.P. [address] [place] [phone] Sherly Echeverria R.N., [facility] [address] [place] [phone] 04/18/2024 2:40 PM PLATER PRODUCTION Office Visit Department of Dermatology in [place], [place] [address] [place] [phone] Maria Eugenia Colunga APRN, C.N.P., M.S.N. [address] [place] [phone] 05/08/2024 10:30 AM PLATER PRODUCTION Clinical Communication Virtual Review in [place], [place] 200 [place] [phone] 05/11/2024 9:00 AM PLATER PRODUCTION Appointment Department of Laboratory Medicine and Pathology, [facility], in [place], [place] [address] [place] [phone] Alice Hill P.A.-C., M.S. 05/11/2024 1:00 PM PLATER PRODUCTION Office Visit Division of Gastroenterology in [address] [phone] Sherly Loza APRN, C.NShaqP., M.S.N. [address] [place] [phone] 05/11/2024 3:00 PM PLATER PRODUCTION Comprehensive Visit Department of Dermatology in [address] [phone] Alice Hill P.A.-C., M.S. Scheduled Referrals Name Type Priority Associated Diagnoses Orde r Schedule Return to provider in another specialty Outpatient Referral Routine Expected: 12/16/2023, Expires: 03/17/2025 documented as of this encounter Visit Diagnoses Diagnosis Wart Plantar- Primary Pain Foot Right Diabetes Mellitus Type 1 (HCC) documented in this encounter Care Teams Inker And Opaquer Relationship Specialty Start Date End Date Elsewhere, Pcp PCP - General Family Medicine 02/11/21 documented as of this encounter
--- OUTSIDE RECORDS SUMMARY | 2024-03-03 09:35 | XMS_ITS | Encounter Summary ---
Author Organization [facility] Address [address] [place] [phone] Care Team Providers Care Casual Shoe Inspector Name Role Phone Elsewhere, Pcp Primary Care Provider Unavailabl e Reason for Visit * Reason Onset Date Comments Stephanie sheffield 11/04/2023 Encounter Details Date Type Department Care Team (Latest Contact Info) Description 11/04/2023 Clinical Communication Division of Gastroenterology in [place], [place] [address] [place] [phone] Selma Bourne M.D. [address] [place] [phone] Stephanie sheffield Social History Tobacco Use Types Packs/Day Years [...] week 04/27/2022 How often do you attend yarsanism or muslim serv ices? Never 04/27/2022 Do you belong to any clubs o r organizations such as yarsanism groups, unions, fraternal or athletic groups, or [...] and heating? Not hard at all 04/29/2023 [facility] of Occupat ional Health - Occupational [...] your living situation today? I have a [facility] place to live 04/29/2023 Education Answer Date [...] CDT Comprehensive Visit Department of Urology in [place], [place] 200 [place] [phone] Anderson Parra M.D. [address] [place] [phone] 03/27/2024 9:00 AM AUTO ELECTRICIAN Clinical Support Department of Nutrition and Diabetes Education in [place], [place] 200 [place] [phone] Eun Delarosa, FORENSIC ECONOMIST, C.N.P. [address] [place] [phone] Sherly Echeverria R.N., [facility] [address] [place] [phone] 04/18/2024 2:40 PM AUTO ELECTRICIAN Office Visit Department of Dermatology in [place], [place] [address] [place] [phone] Maria Eugenia Colunga APRN, C.N.P., M.S.N. [address] [place] [phone] 05/08/2024 10:30 AM AUTO ELECTRICIAN Clinical Communication Virtual Review in [place], [place] 200 [place] [phone] 05/11/2024 9:00 AM AUTO ELECTRICIAN Appointment Department of Laboratory Medicine and Pathology, [facility] in [place], [place] [address] [place] [phone] Alice Hill P.A.-C., M.S. 05/11/2024 1:00 PM AUTO ELECTRICIAN Office Visit Division of Gastroenterology in [place], [place] [address] [place] [phone] Sherly Loza APRN, C.N.P., M.S.N. [address] [place] [phone] 05/11/2024 3:00 PM AUTO ELECTRICIAN Comprehensive Visit Department of Dermatology in [place], [place] [address] [place] [phone] Alcie Hill P.A.-C., M.S. documented as of this encounter Visit Diagnoses Not on filedocumented in this encounter Care Teams Casual Shoe Inspector Relationship Specialty Start Date End Date Elsewhere, Pcp PCP - General Family Medicine 02/11/21 documented as of this encounter
--- OUTSIDE RECORDS SUMMARY | 2024-03-03 09:35 | XMS_ITS | Encounter Summary ---
Author Organization [facility] Address [address] [place] [phone] Care Team Providers Care End Frazer Name Role Phone Elsewhere, Pcp Primary Care Provider Unavailabl e Reason for Visit * Reason Comments Med Refill Encounter Details Date Type Department Care Team (Late st Contact Info) Description 12/28/2023 Refill Division of Gastroenterology in [place], [place] [address] [place] [phone] Dane Tanner M.D. [address] [place] [phone] Med Refill Social History Tobacco Use Types Packs/Day Years [...] week 04/27/2022 How often do you attend jain or mandaeism serv ices? Never 04/27/2022 Do you belong to any clubs o r organizations such as jain groups, unions, fraternal or athletic groups, or [...] and heating? Not hard at all 04/29/2023 [facility] of Occupat ional Health - [...] your living situation today? I have a [facility] place to live 04/29/2023 Education Answer [...] CDT Comprehensive Visit Department of Urology in [place], [place] 200 [place] [phone] Anderson Parra M.D. [address] [place] [phone] 03/27/2024 9:00 AM WATER TREATMENT PLANT SUPERVISOR Clinical Support Department of Nutrition and Diabetes Education in [place], [place] 200 [place] [phone] Eun Delarosa APRN, C.N.P. [address] [place] [phone] Sherly Echeverria R.N., [facility] [address] [place] [phone] 04/18/2024 2:40 PM WATER TREATMENT PLANT SUPERVISOR Office Visit Department of Dermatology in [place], [place] [address] [place] [phone] Maria Eugenia Colunga APRN, C.N.P., M.S.N. [address] [place] [phone] 05/08/2024 10:30 AM WATER TREATMENT PLANT SUPERVISOR Clinical Communication Virtual Review in [place], [place] 200 [place] [phone] 05/11/2024 9:00 AM WATER TREATMENT PLANT SUPERVISOR Appointment Department of Laboratory Medicine and Pathology, [facility] in [place], [place] [address] [place] [phone] Alice Hill P.A.-C., M.S. 05/11/2024 1:00 PM WATER TREATMENT PLANT SUPERVISOR Office Visit Division of Gastroenterology in [place], [place] [address] [place] [phone] Sherly Loza, Aurelio HERNANDEZNYony., M.S.N. [address] [place] [phone] 05/11/2024 3:00 PM WATER TREATMENT PLANT SUPERVISOR Comprehensive Visit Department of Dermatology in [place], [place] [address] [place] [phone] Alice Hill P.A.-C., M.S. documented as of this encounter Visit Diagnoses Diagnosis Crohn's Disease (HCC)- Primary documented in this encounter Care Teams End Frazer Relationship Specialty Start Date End Date Elsewhere, Pcp PCP - General Family Medicine 02/11/21 documented as of this encounter
--- OUTSIDE RECORDS SUMMARY | 2024-03-03 09:35 | XMS_ITS | Encounter Summary ---
Author Organization [facility] Address [address] [place] [id number] Care Team Providers Care Oil Field Equipment Mechanic Name Role Phone Elsewhere, Pcp Primary Care Provider Unavailabl e Reason for Referral * Outpatient (Routine) - Authorized Specialty Diagnoses / Procedures Referred By Contac t Referred To Contact Dermatology Diagnoses Ambar Zhang APRN, C.NBk, M.S.N. [address] [place] [phone] [facility] Referral ID Status Reason Start Date Expiration Date V isits Requested Visits Authorized [id number] Authorized 01/20/2024 07/21/2025 1 1 Scheduling Instructions F/u jojo tx w/ cryotherapy Reason for Visit * Outpatient (Routine) - Closed Specialty Diagnoses / Procedures Referred By Contac t Referred To Contact Dermatology Shahana Verde D.P.M. [address] [place] [phone] Sherly Rodriguez MPAS, P.A.-C. Referral ID Status Reason Start Date Expiration Date Visits Re quested Visits Authorized [id number] Closed 12/16/2023 06/16/2025 1 1 Encounter Details Date Type Department Care Team ([facility] Contact Info) Description 01/20/2024 11:00 AM CDT Office Visit Department of Dermatology in [place], [place] 200 [place] [phone] Ambar Shafer APRN, C.N.P., M.S.N. 200 [place] [address] Jojo Friedman (Primary Dx) Discharge Disposition: Home or Self Care Social [...] week 04/27/2022 How often do you attend anglican or sabianist serv ices? Never 04/27/2022 Do you belong to any clubs o r organizations such as anglican groups, unions, fraternal or athletic groups, or [...] and heating? Not hard at all 04/29/2023 [facility] - [...] your living situation today? I have a [facility] place to live 04/29/2023 Education [...] PM CDT documented as of this encounter Consult Notes * Ambar Shafer APRN, C.N.P., M.S.N. - 01/20/2024 11:00 AM CDT Patient seen and discussed with supervising citrix consultant, Dr. Nogueira, who evaluated the patient and concurs with the assessment and plan. CHIEF COMPLAINT/REASON FOR VISIT Wart(s) HISTORY OF PRESENT ILLNESS Ms. Shavonne Brush is a pleasant 53 y.o. female who presents today for evaluation and treatment of warts. She was last seen in the Department of Dermatology on 05/05/2023 for a full-body skin examination. During this visit, they discussed intermittent dermatitis and had 8 skin tags removed with snip excision. Today, she presents to have some warts treated. She previously has had the wart treated by our colleagues in the Podiatry department with TCA 40% with no improvement. Otherwise, the only other treatment the patient has attempted use of is over the counter is Compound W. Otherwise, the patient denies any new or changing cutaneous lesions. No Known Allergies PHYSICAL EXAM General: Awake, alert, in no acute distress, and with appropriate affect. Skin: I have examined the right lateral plantar surface per patient request. A single skin colored papule with thrombosed vessels, consistent with a wart. IMPRESSION/REPORT/PLAN #1 History of Crohn's disease, immunosuppressed on Stelara #1 Plantar wart, right lateral plantar surface I reviewed the etiology, pathogenesis, expected course and treatment options including cryotherapy,salicylic acid 40%, salicylic acid/5- fluorouracil compounded, Annamaria antigen injections, Cidofovir injections, and laser. Plan: Apply Wart Stick every evening. Discussed with patient if this is not providing improvement we can prescribe 5 FU/Salicylic acid at the next visit. In office- pare down and freeze wart today After discussion of the risks, benefits and alternatives to treatment with cryotherapy, informed consent was obtained. We treated a total of 1 lesion(s) with two 20-second freeze-thaw cycles of liquid nitrogen cryotherapy. The patient tolerated the procedure well. Aftercare instructions were provided in verbal form to the patient. Recommendations as follows: 1. Soak the area in warm water for 10 to 15 minutes or begin after showering. 2. Use a nail file to remove soft skin over the wart, then discard. 3. Apply Wart stick under occlusion with tape. 4. Wash the area prior to reapplication. 5. Repeat process every 24 hours until resolved. Follow-up: 1 month Treatment options of warts were discussed. The wart(s) was pared and treated with liquid nitrogen cryotherapy in the standard fashion. The patient tolerated this well and was encouraged to apply moisturizer if irritation develops. The patient may return for a follow-up visit in three to four weeks for evaluation and possible treatment if desired. PATIENT EDUCATION Ready to learn. No apparent learning barriers were identified. Learning preferences include listening. Explained diagnosis and treatment plan; patient/guardian of patient expressed understanding of the content. documented in this encounter Plan of Treatment Upcoming Encounters Date Type Department Care Team (Latest Contact Info) Description 03/13/2024 1:00 PM CDT Comprehensive Visit Department of Urology in [place], [place] [address] [place] [phone] Anderson Parra M.D. [address] [place] [phone] 03/27/2024 9:00 AM LITHOGRAPH PRESS OPERATOR TINWARE Clinical Support Department of Nutrition and Diabetes Education in [place], [place] [address] [place] [phone] Eun Delarosa, DAVID, C.N.P. [address] [place] [phone] Sherly Echeverria R.N., CDCES [address] [place] [phone] 04/18/2024 2:40 PM LITHOGRAPH PRESS OPERATOR TINWARE Office Visit Department of Dermatology in [place], [place] [address] [place] [phone] Maria Eugenia Colunga APRN, C.N.P., M.S.N. [address] [place] [phone] 05/08/2024 10:30 AM LITHOGRAPH PRESS OPERATOR TINWARE Clinical Communication Virtual Review in [place], [place] 200 [place] [phone] 05/11/2024 9:00 AM LITHOGRAPH PRESS OPERATOR TINWARE Appointment Department of Laboratory Medicine and Pathology, [facility] in [place], [place] [address] [place] [phone] Alice Hill P.A.-C., M.S. 05/11/2024 1:00 PM LITHOGRAPH PRESS OPERATOR TINWARE Office Visit Division of Gastroenterology in [address] [phone] Sherly Loza APRN, C.N.P., M.S.N. [address] [place] [phone] 05/11/2024 3:00 PM LITHOGRAPH PRESS OPERATOR TINWARE Comprehensive Visit Department of Dermatology in [address] [phone] Alice Hill P.A.-C., M.S. Scheduled Referrals Name Type Priority Associated Diagnoses Order Schedule Dermatology office visit (clinic) Outpatient Referral Routine Wart Plantar Expected: 02/20/2024 (Approximate), Expires: 04/21/2025 documented as of this encounter Visit Diagnoses Diagnosis Wart Plantar- Primary documented in this encounter Care Teams Oil Field Equipment Mechanic Relationship Specialty Start Date End Date Elsewhere, Pcp PCP - General Family Medicine 02/11/21 documented as of this encounter
--- OUTSIDE RECORDS SUMMARY | 2024-03-03 09:35 | XMS_ITS | Encounter Summary ---
Author Organization [facility] Address [address] [place] [phone] Care Team Providers Care Cartoon Animator Name Role Phone Elsewhere, Pcp Primary Care Provider Unavailabl e Reason for Visit * Reason Onset Date Comments Pre-visit Intake 02/16/2024 Encounter Details Date Type Department Care Team (Latest Contact Info) Description 02/16/2024 3:15 PM CDT Clinical Communication Virtual Review in [place], [place] 200 [place] [address] Pre-visit Intake Social History Tobacco Use Types Packs/Day Years [...] How often do you attend anglican or yazidism serv ices? Never 04/27/2022 Do you belong [...] and heating? Not hard at all 04/29/2023 [facility] - Occupational Stress [...] your living situation today? I have a [facility] place to live 04/29/2023 Education Answer [...] CDT Comprehensive Visit Department of Urology in [place], [place] [address] [place] [address] Anderson Parra M.D. 200 [place] [phone] 03/27/2024 9:00 AM OPTICAL INSTRUMENT ASSEMBLER Clinical Support Department of Nutrition and Diabetes Education in [place], [place] [address] [place] [phone] Eun Delarosa APRN, C.N.P. [address] [place] [phone] Sherly Echeverria R.N., [facility] [address] [place] [phone] 04/18/2024 2:40 PM OPTICAL INSTRUMENT ASSEMBLER Office Visit Department of Dermatology in [place], [place] [address] [place] [phone] Maria Eugenia Colunga APRN, C.N.P., M.S.N. [address] [place] [phone] 05/08/2024 10:30 AM OPTICAL INSTRUMENT ASSEMBLER Clinical Communication Virtual Review in [place], [place] 200 [place] [phone] 05/11/2024 9:00 AM OPTICAL INSTRUMENT ASSEMBLER Appointment Department of Laboratory Medicine and Pathology, [facility] in [address] [phone] Alice Hill P.A.-C., M.S. 05/11/2024 1:00 PM OPTICAL INSTRUMENT ASSEMBLER Office Visit Division of Gastroenterology in [address] [phone] Sherly Loza APRN, C.N.P., M.S.N. [address] [place] [phone] 05/11/2024 3:00 PM OPTICAL INSTRUMENT ASSEMBLER Comprehensive Visit Department of Dermatology in [address] [phone] Alice Hill P.A.-C., M.S. documented as of this encounter Visit Diagnoses Not on filedocumented in this encounter Care Teams Cartoon Animator Relationship Specialty Start Date End Date Elsewhere, Pcp PCP - General Family Medicine 02/11/21 documented as of this encounter
--- OUTSIDE RECORDS SUMMARY | 2024-03-03 09:35 | XMS_ITS | Encounter Summary ---
Author Organization [facility] Address [address] [place] [phone] Care Team Providers Care Resident Physician Name Role Phone Elsewhere, Pcp Primary Care Provider Unavailabl e Reason for Referral * Specialty Diagnoses / Procedures Referred By Contac t Referred To Contact Eun Delarosa APRN, C.N.P. [address] [place] [phone] [facility] Referral ID Status Reason Start Date Expiration Date Visits Re quested Visits Authorized * Outpatient (Routine) - Closed Specialty Diagnoses / Procedures Referred By Contac t Referred To Contact Diagnoses Diabetes Mellitus Type 1 (HCC) Procedures US Kidneys Bilateral with Bladder Eun Delarosa APRN, C.N.P. [address] [place] [phone] [facility] Referral ID Status Reason Start Date Expiration Date Visits Re quested Visits Authorized [id number] Closed 02/17/2024 02/16/2025 1 1 * Outpatient (Routine) - Closed Specialty Diagnoses / Procedures Referred By Contac t Referred To Contact Nephrology and Hypertension Diagnoses Diabetes Mellitus Type 1 (HCC) Eun Delarosa APRN, C.N.P. [address] [place] [phone] [facility] Referral ID Status Reason Start Date Expiration Date V isits Requested Visits Authorized [id number] Closed Specialty Services Required 02/17/2024 08/18/2025 1 1 * Outpatient (Routine) - Authorized Specialty Diagnoses / Procedures Referred By Juan t Referred To Contact Endocrinology Diagnoses Diabetes Mellitus Type 1 (HCC) Eun Delarosa APRN, C.N.P. [address] [place] [phone] [facility] Referral ID Status Reason Start Date Expiration Date V isits Requested Visits Authorized [id number] Authorized 02/17/2024 08/18/2025 1 1 Scheduling Instructions Please, schedule with a MD. * Outpatient (Routine) - Authorized Specialty Diagnoses / Procedures Referred By Juan t Referred To Contact Nutrition Diagnoses Diabetes Mellitus Type 1 (HCC) Eun Delarosa APRN, C.N.P. [address] [place] [phone] [facility] Referral ID Status Reason Start Date Expiration Date V isits Requested Visits Authorized [id number] Authorized 02/17/2024 08/18/2025 1 1 * Outpatient (Routine) - Authorized Specialty Diagnoses / Procedures Referred By Contac t Referred To Contact Endocrinology Diagnoses Diabetes Mellitus Type 1 (HCC) Eun Delarosa APRN, C.N.P. [address] [place] [phone] [facility] Referral ID Status Reason Start Date Expiration Date V isits Requested Visits Authorized [id number] Authorized 02/17/2024 08/18/2025 1 1 Reason for Visit * Outpatient (Routine) - Closed Specialty Diagnoses / Procedures Referred By Juan maguire Referred To Contact Endocrinology Diagnoses Diabetes Mellitus Type 1 (HCC) Eun Delarosa APRN, C.N.P. [address] [place] [address] [facility] Referral ID Status Reason Start Date Expiration Date Visits Re quested Visits Authorized [id number] Closed 10/28/2023 04/28/2025 1 1 Encounter Details Date Type Department Care Team (Latest Contact Info) Description 02/17/2024 11:00 AM CDT Office Visit Division of Endocrinology in [place], [place] [address] [place] [phone] Eun Delarosa APRN, C.N.P. [address] [place] [phone] Diabetes Mellitus Type 1 (HCC) Social History [...] week 04/27/2022 How often do you attend alevism or synagogue serv ices? Never 04/27/2022 Do you belong to any clubs o r organizations such as alevism groups, unions, fraternal or athletic groups, or [...] your living situation today? I have a [facility] place to live 04/29/2023 Education Answer [...] Sign Reading Time Taken Comments Blood Pressure 128/88 02/17/2024 10:02 AM CDT Pulse 91 02/17/2024 10:02 AM CDT Temperature - - Respiratory Rate - - Oxygen Saturation - - Inhaled Oxygen Concentration - - Weight 108 kg (238 lb 5.1 oz) 02/17/2024 10:02 A M CDT Height 166 cm (5' 5.35) 02/17/2024 10:02 AM CDT Body Mass Index 39.23 02/17/2024 10:02 AM CDT documented in this encounter Progress Notes * Eun Delarosa, DAVID, C.N.P. - 02/17/2024 11:00 AM CDT [facility] Follow Up Visit Note CHIEF COMPLAINT/PURPOSE OF VISIT Patient is here for followup of type 1 diabetes mellitus on insulin pump management. The patient reports that she has been struggling with her blood glucose control lately and she feels that she fell of the wagon in regards to her blood glucose control. Pt states that she has been experiencing more stress in her life lately as well. HISTORY OF PRESENT ILLNESS #1 Diabetes Mellitus Type 1 Diabetes diagnosis: January 2020 after presenting acute onset changes in vision - after initiallybeing diagnosed as type 2 DM she experienced unexpected weight loss, polyuria and polydipsia. In 10/09/2020, antibody panel showed positive GAD65 and IA-2 antibodies finally leading to the diagnosis of type 1 diabetes mellitus. C-peptide 0.6 with a fasting glucose 101 mg/dL. Diabetes regimen: Tandem T slim with DexiVideosongs G6 CGM , in control IQ mode. PUMP PROGRAM: Patient has used pump therapy to manage their diabetes since 12/30/2022 Current device settings are on the scanned report. Site change frequency: infusion site every 3 days, sensor every 10 days. Reports having to change her infusion sets more often dt her infusion sites failing. Use of bolus calculator: yes. Rarely overrides. Use of temporary basal rates: uses the sleep mode consistently, and the exercise mode occasionally. Use of extended bolus: no. Recent insulin pump setting changes by patient: No HYPOGLYCEMIA Mc Low Blood Sugar Awareness Survey Question 10/24/2023 9:06 AM CDT - Filed by Patient 05/26/2023 11:20 AM CDT - Filed by Patient How often do you have classic symptoms (suddenly feeling weak, shaky, and sweaty at onset) when youhave a low blood sugar? Sometimes Often Have you lost some of the classic symptoms (suddenly feeling weak, shaky and sweaty at onset) that used to occur when you have a low blood sugar? Yes Yes Are you confident that you will recognize when you are having a low blood sugar? Yes Yes At what number is your blood sugar when you feel a low? 60-70 60-70 How often in the past 30 days have you had a blood sugar below 70 with warning symptoms of sweatiness, shakiness, weakness? 1-3 times 1-3 times How often in the past 30 days have you had a blood sugar below 70 without any warning symptoms of sweatiness, shakiness weakness? 1-3 times Never How often in the past three months have you had a low blood sugar event where you needed assistancefrom another person? Example: Someone getting juice or other treatment for you. 1-3 times Never How often in the past three months have you had a low blood sugar event where you were unconscious,or had a seizure, and either received Glucagon or called 911? Never Never She has glucagon at home. BLOOD GLUCOSE MONITORING Average blood glucose readin mg/dL, per cgm report. TIR 58 %, 0.1% of blood sugars 54-69 mg/dL. Number of times testing per day: on Dexcom G6 CMG, using cgm consistently. Would like to upgrade toDexcom G7. LIFESTYLE Diet: The patient states that she eats three meals per day. Tries not to snack. Exercise: Likes to walk for exercise. Is hoping to resume her routine exercise program in the near future. Weight: unintentional gain of 8.8 lbs since October,. 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 Past Medical History: Diagnosis Date Arthritis Inflammatory (HCC) Colitis Ulcerative (HCC) 1987; Colon removed 1991 Complication Anesthesia Initial Depressive Disorder 2000 Diabetes Mellitus NOS January 2020 Eczema 2013 Hypothyroidism 2011 Migraine Headache family history Pain Abdominal NOS Post Operative Nausea/Vomiting Past Surgical History: Procedure Laterality Date COLON SURGERY September 1991 OOPHORECTOMY, PARTIAL OR TOTAL, UNILATERAL OR BILATERAL;.. RIght removed 2018 OTHER SURGICAL HISTORY TMJ 1985; Pilonidal cysts - several OVARY SURGERY Right oophrectomy with tumor removal Patient has no known allergies. REVIEW OF DIABETES COMPLICATIONS/SCREENINGS Low Blood Sugar Awareness Survey Question 02/13/2024 12:08 PM CDT - Filed by Patient 10/24/2023 9:06 AM CDT - Filed by Patient How often do you have classic symptoms (suddenly feeling weak, shaky, and sweaty at onset) when youhave a low blood sugar? Often Sometimes Have you lost some of the classic symptoms (suddenly feeling weak, shaky and sweaty at onset) that used to occur when you have a low blood sugar? Yes Yes Are you confident that you will recognize when you are having a low blood sugar? Yes Yes At what number is your blood sugar when you feel a low? 60-70 60-70 How often in the past 30 days have you had a blood sugar below 70 with warning symptoms of sweatiness, shakiness, weakness? 1-3 times 1-3 times How often in the past 30 days have you had a blood sugar below 70 without any warning symptoms of sweatiness, shakiness weakness? Never 1-3 times How often in the past three months have you had a low blood sugar event where you needed assistancefrom another person? Example: Someone getting juice or other treatment for you. Never 1-3 times How often in the past three months have you had a low blood sugar event where you were unconscious,or had a seizure, and either received Glucagon or called 911? Never Never Lab Results Component Value Date HGBA1C 7.6 (H) 10/28/2023 HGBA1C 7.2 (H) 06/02/2023 CREATININE 1.16 (H) 02/17/2024 CREATININE 1.18 (H) 05/10/2023 EGFR 56 (L) 02/17/2024 EGFR 55 (L) 05/10/2023 ALBCREARATIO <11 10/28/2022 ALBCREARATIO <13 04/29/2022 CHOL 225 (H) 10/28/2023 TRIG 166 (H) 10/28/2023 HDL 58 10/28/2023 LDLCALC 138 (H) 10/28/2023 TSH 6.0 (H) 02/17/2024 ALT 18 05/10/2023 [id number] 227 05/10/2023 CPEPTIDE 0.6 (L) 10/09/2020 [id number] 0.76 (H) 10/09/2020 Last eye exam: 05/26/2023, locally. Findings: no diabetic retinopathy. Pt plans to schedule an eye exam in May, at the local clinic again. Asked the pt to send us report from this visit. Pt follows regularly with her local pcp, for general health maintenance and reports that she plans to schedule an appointment for the GME in the near future. Follows with GI at the [facility] for Crohn's Disease. Follows regularly with Podiatry for Right plantar wart and Diabetes foot care. SYSTEMS REVIEW Eyes: Denies recent vision changes. Skin: Denies skin changes at the infusion sites. Reports frequent infusion site issues lately. Neuro: Denies numbness or tingling of upper and lower extremities. PHYSICAL EXAMINATION General: Alert and oriented x3, and in no acute distress. Abdomen: Infusion sites appear satisfactory. Patient rotates appropriately. IMPRESSION/REPORT/PLAN #1 Diabetes Mellitus Type 1, uncontrolled with hyperglycemia. Current A1C pending. 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 #4 Fitting or adjustment of insulin pump. Due to hyperglycemia we increased patient's mealtime doses and changed her carb ratios at 5:00 a.m.to 1:14, 12:30 p.m. 1:14, and 5:30 p.m. to 1:13. We also increased her basal rate at 5:30 p.m. to 0.74 units/hour. Encouraged the patient to to pre bolus with her meals if possible.Ordered a follow-up appointment for the patient with 1 of our educators in 2 weeks for further assistance with insulindose adjustment. The patient plans to contact [employer] regarding sending her infusion sets with a metal cannula which should help with scar tissue issues with her infusion sets. Ordered Dexcom G7 sensors for the patient, per her request. The patient plans to follow up with her local primary care provider regarding possibly starting a statin, due to elevated cholesterol. Noted elevated TSH. The patient states that she has not been taking her levothyroxine consistently,due to forgetting. She plans to set a reminder to help her be more consistent with taking her levothyroxine. We will recheck her TSH in 3 months. Noted the patient's creatinine level continues to be elevated. Reviewed patient's case with one of [facility]rology [facility], Dr. Zayas today, who recommended ordering a Nephrology referral with labsand a renal ultrasounds, and I referred pt. Pt stated that, unfortunately, she has been experiencing increased stress in her life lately, and that she has been struggling with depression and anxiety. Mrs. Brush states that she has been workingwith a therapist in the past and has access to them if needed. Referred pt to our Weight loss clinic. Mrs. Brush would like to review weight loss options, including medications with them. The patient will return to [facility] in 3 months and at that time we will check her A1c, and we will repeat her TSH. She will be due for an eye exam and plans to obtain one at her local clinic in May,. In the interim, she may contact us with any questions or concerns regarding her Diabetes. I will notify pt when her A1C and urine microalbumin test results become available today. It was a pleasure seeing Ms. Brush today. documented in this encounter Plan of Treatment Upcoming Encounters Date Type Department Care Team (Latest Contact Info) Description 03/13/2024 1:00 PM CDT Comprehensive Visit Department of Urology in [address] [phone] Anderson Parra M.D. [address] [place] [phone] 03/27/2024 9:00 AM ROTARY DRILL OPERATOR Clinical Support Department of Nutrition and Diabetes Education in [address] [phone] Eun Delarosa APRN, C.N.P. [address] [place] [phone] Sherly Echeverria R.N., [facility] [address] [place] [phone] 04/18/2024 2:40 PM ROTARY DRILL OPERATOR Office Visit Department of Dermatology in [address] [phone] Maria Eugenia Colunga, DAVID, C.N.P., M.S.N. [address] [place] [phone] 05/08/2024 10:30 AM ROTARY DRILL OPERATOR Clinical Communication Virtual Review in [place], [place] [address] [place] [phone] 05/11/2024 9:00 AM ROTARY DRILL OPERATOR Appointment Department of Laboratory Medicine and Pathology, [facility], in [address] [phone] Alice Hill P.A.-C., M.S. 05/11/2024 1:00 PM ROTARY DRILL OPERATOR Office Visit Division of Gastroenterology in [address] [phone] Sherly Loza APRN, C.N.P., M.S.N. [address] [place] [address] 05/11/2024 3:00 PM ROTARY DRILL OPERATOR Comprehensive Visit Department of Dermatology in [place], [place] [address] [place] [address] Alice Hill P.A.-C., M.S. Scheduled Orders Name Type Priority Associated Diagnoses Orde r Schedule Hemoglobin A1c Lab Routine Diabetes Mellitus Type 1 (HCC) Expected: 05/18/2024 (Approximate), Expires: 02/16/2025 S-TSH (Thyroid-Stimulating Hormone - Sensitive) Lab Routine Diabetes Mellitus Type 1 (HCC) Expected: 05/18/2024, Expires: 05/18/2025 Scheduled Referrals Name Type Priority Associated Diagnoses Order Schedule Endocrinology office visit (clinic) Outpatient Referral Routine Diabetes Mellitus Type 1 (HCC) Expected: 05/18/2024, Expires: 05/18/2025 Nutrition - Weight management medical nutrition therapy overweight/obesity consult (clinic) Outpatient Referral Routine Diabetes Mellitus Type 1 (HCC) Expected: 02/17/2024, Expires: 05/18/2025 Endocrinology - Weight management consult (clinic) Outpatient Referral Routine Diabetes Mellitus Type 1 (HCC) Expected: 02/17/2024, Expires: 05/18/2025 Nephrology and Hypertension - General consult (clinic) Outpatient Referral Routine Diabetes Mellitus Type 1 (HCC) Expected: 02/17/2024, Expires: 05/18/2025 Nutrition - clinical trial educator visit (clinic) Outpatient Referral Routine Diabetes Mellitus Type 1 (HCC) Expected: 03/02/2024, Expires: 02/16/2025 documented as of this encounter Results * US Kidneys Bilateral [...] unchanged. Eun Delarosa APRN, C.N.P. IMG US ID OCEDURES * Urinalysis, with Microscopic: Urine, Midstream (02/18/2024 [...] Eun Delarosa APRN C.N.P. LAB URINE ORDERABLES [facility] [address] [place] [address], [facility] [place] [address] [place] [address] * (ABNORMAL) Renal Function Panel (02/18/2024 1:52 [...] Eun Delarosa APRN C.N.P. LAB BLOOD ADD-ON [facility] 200 [place] [address], [facility] [place] 200 [place] [address] documented in this encounter Visit Diagnoses Diagnosis Diabetes Mellitus Type 1 (HCC) Diabetes Mellitus Type 1 (HCC) documented in this encounter Care Teams Resident Physician Relationship Specialty Start Date End Date Elsewhere, Pcp PCP - General Family Medicine 02/11/21 documented as of this encounter
--- OUTSIDE RECORDS SUMMARY | 2024-03-03 09:35 | XMS_ITS | Encounter Summary ---
Author Organization [facility] Address [address] [place] [phone] Care Team Providers Care Mathematical Engineering Technician Name Role Phone Elsewhere, Pcp Primary Care Provider Unavailabl e Reason for Visit * Reason Onset Date Comments Pre-visit Intake 01/19/2024 Encounter Details Date Type Department Care Team (Latest Contact Info) Description 01/19/2024 10:30 AM CDT Clinical Communication Virtual Review in [place], [place] 200 [place] [address] Pre-visit Intake Social History Tobacco Use Types [...] How often do you attend adventist or baptist serv ices? Never 04/27/2022 Do you belong [...] and heating? Not hard at all 04/29/2023 [facility] - Occupational [...] your living situation today? I have a [facility] place to live 04/29/2023 Education [...] CDT Comprehensive Visit Department of Urology in [place], [place] [address] [place] [address] Anderson Parra M.D. 200 [place] [phone] 03/27/2024 9:00 AM DIRECTOR OF PRIMARY Clinical Support Department of Nutrition and Diabetes Education in [place], [place] [address] [place] [phone] Eun Delarosa APRN, C.N.P. [address] [place] [phone] Sherly Echeverria R.N., [facility] [address] [place] [phone] 04/18/2024 2:40 PM DIRECTOR OF PRIMARY Office Visit Department of Dermatology in [place], [place] [address] [place] [phone] Maria Eugenia Colunga APRN, C.N.P., M.S.N. [address] [place] [phone] 05/08/2024 10:30 AM DIRECTOR OF PRIMARY Clinical Communication Virtual Review in [place], [place] [address] [place] [address] 05/11/2024 9:00 AM DIRECTOR OF PRIMARY Appointment Department of Laboratory Medicine and Pathology, [facility] in [address] [phone] Alice Hill P.A.-C., M.S. 05/11/2024 1:00 PM DIRECTOR OF PRIMARY Office Visit Division of Gastroenterology in [address] [phone] Sherly Loza APRN, C.N.P., M.S.N. [address] [place] [phone] 05/11/2024 3:00 PM DIRECTOR OF PRIMARY Comprehensive Visit Department of Dermatology in [address] [phone] Alice Hill P.A.-C., M.S. documented as of this encounter Visit Diagnoses Not on filedocumented in this encounter Care Teams Mathematical Engineering Technician Relationship Specialty Start Date End Date Elsewhere, Pcp PCP - General Family Medicine 02/11/21 documented as of this encounter
== END 2024-03-02 08:25 | disposition home or self-care (01) ==
LOC: NFLDREF 03-03 09:32
PROVIDERS: PCP Internal Medicine; Referring Provider Internal Medicine; Visit Provider Internal Medicine
DX: E13.9 Other specified diabetes mellitus without complications (principal); E03.9 Hypothyroidism, unspecified
CPT/HCPCS: 80061

== ENCOUNTER 2024-05-29 14:58 | Outpatient (CLI) | payer BC, SELFPAY ==
--- NOTE | 2024-05-29 15:00 | CRLHL7_ITS ---
For Patients: As a result of the Century Cures Act, medical imaging exams and procedure reports are released immediately into your electronic medical record. You may view this report before your referring provider. If you have questions, please contact your health care provider. BILATERAL SCREENING MAMMOGRAM WITH COMPUTER-AIDED DETECTION AND TOMOSYNTHESIS TECHNIQUE: CC and MLO views were obtained. These mammographic images have been obtained using full-field digital technique. These mammographic images were interpreted with the benefit of computer-aided detection. Breast Tomosynthesis was used in this interpretation. COMPARISON FILM: 02/03/21. FINDINGS: There are scattered areas of fibroglandular density. IMPRESSION: There is no radiographic evidence for malignancy. ASSESSMENT: BI-RADS Category 2: Benign RECOMMENDATION: Routine screening mammogram in 1 year. A lay language report of this examination will be provided to the patient. Sincere Hopkins M.D. Diagnostic Radiologist [email or web address] SP/Dictated by: Sincere Hopkins MD @ 05/30/2024 9:49:00 AM (Electronically Signed)
== END 2024-05-29 14:59 | disposition home or self-care (01) ==
LOC: MAMMO 14:59
PROVIDERS: PCP Internal Medicine; Visit Provider Internal Medicine
DX: Z12.31 Encounter for screening mammogram for malignant neoplasm of breast (principal)
CPT/HCPCS: 77063; 77067

== ENCOUNTER 2025-02-06 08:22 | Outpatient (CLI) | payer BC, SELFPAY | END 2025-02-06 08:23 | disposition home or self-care (01) | LOC: NFLDREF 02-11 04:16 | PROVIDERS: PCP Internal Medicine; Referring Provider Internal Medicine; Visit Provider Internal Medicine | DX: E03.9 Hypothyroidism, unspecified (principal); E78.5 Hyperlipidemia, unspecified | CPT/HCPCS: 80061; 84439; 84443 ==

== ENCOUNTER 2025-05-09 08:02 | Outpatient (CLI) | payer BC, SELFPAY | END 2025-05-09 08:03 | disposition home or self-care (01) | LOC: NFLDREF 05-14 08:07 | PROVIDERS: PCP Internal Medicine; Referring Provider Internal Medicine; Visit Provider Internal Medicine | DX: E78.5 Hyperlipidemia, unspecified (principal); E03.9 Hypothyroidism, unspecified | CPT/HCPCS: 80061; 84443 ==